=== PATIENT | female | born 1995 | race Caucasian/White ===

== ENCOUNTER → 2019-02-03 12:10 | Outpatient (CLI) | payer OTHER, SELFPAY ==
[2019-02-09 11:04] LABS: Hematocrit 39.4 % (36-46); Hemoglobin 13.2 g/dL (12.0-16.0); Mean Corpuscular HGB Conc 33.5 % (30-36); Mean Corpuscular Hemoglobin 31.9 PG (26-34); Mean Corpuscular Volume 95.3 fL (80-100); Platelet Count 251 X10^3/uL (150-400); Red Blood Cell Count 4.13 X10^6/uL (4.0-5.2); White Blood Cell Count 3.6 X10^3/uL (4.5-11.0)
[2019-02-09 11:15] LABS: Alanine Aminotransferase 21 IU/L (9-52); Albumin 4.4 g/dL (3.5-5.0); Albumin Globulin Ratio 1.8 (1.0-2.8); Alkaline Phosphatase 53 U/L (38-126); Aspartate Aminotransferase 17 IU/L (14-36); BUN Creatinine Ratio 17.1 (6-22); Bilirubin Total 0.3 mg/dL (0.2-1.3); Blood Urea Nitrogen 12 mg/dL (7-17); Carbon Dioxide 28 mmol/L (22-32); Chloride 104 mmol/L (98-107); Cholesterol 163 mg/dL (140-199); Estimated Glomerular Filt Rate > 60.0 mL/min (>60); Globulin 2.4 g/dL (1.7-4.1); Glucose 90 mg/dL (70-100); HDL Cholesterol 55 mg/dL (40-60); HEMOLYSIS < 15 (0-50); LDL Cholesterol Calculated 97 mg/dL (<100); Sodium 140 mmol/L (137-145); Total Protein 6.8 g/dL (6.3-8.2); Triglycerides 53 mg/dL (35-150)
== END ==
PROVIDERS: Nurse Practitioner Family; Visit Provider Physician Assistant
DX: R10.30 Lower abdominal pain, unspecified (principal)
CPT/HCPCS: 87210

== ENCOUNTER → 2019-02-03 12:49 | Outpatient (CLI) | payer OTHER, SELFPAY ==
--- NOTE | 2019-02-03 12:51 | DI.US.S_ITS ---
PROCEDURE: US PELVIC COMPLETE INDICATIONS: PAIN; HISTORY PID TECHNIQUE: Real-time scanning was performed of the pelvic organs, with image documentation. Additional endovaginal scanning was necessary due to incomplete visualization of the adnexal and endometrial structures by transabdominal scanning. COMPARISON: [facility], , PELVIC COMPLETE, 07/07/2012, 21:44. FINDINGS: Transabdominal scanning: Limited scanning through the kidneys shows no hydronephrosis. No pathologic free abdominal or pelvic fluid. Endovaginal scanning: Uterus: Uterus is normal in size at 8 x 3.7 x 4.7 cm. The endometrium measures 10.4 mm in combined thickness. No discrete uterine fibroid is seen. No gross endometrial mass or fluid. Ovaries: Right ovary measures 3.5 x 1.9 x 1.5 cm in size. Left ovary measures 3 x 1.7 x 1.5 cm in size. No gross solid renal lesion. Normal blood flow is seen in bilateral ovaries on color Doppler images. IMPRESSION: Unremarkable ultrasound examination of pelvis. No finding to explain patient's symptoms. Dictated by: Roscoe Jacob M.D. on 02/03/2019 at 13:55 Approved by: Roscoe Jacob M.D. on 02/03/2019 at 14:01
== END ==
PROVIDERS: Visit Provider Physician Assistant
DX: R10.2 Pelvic and perineal pain (principal); R10.30 Lower abdominal pain, unspecified
CPT/HCPCS: 36415; 76856; 80053; 80061; 85027; 87210

== ENCOUNTER → 2019-02-28 10:31 | Outpatient (CLI) | payer OTHER, SELFPAY ==
[2019-02-28 11:49] LABS: Cancer Antigen 125 7 U/mL (0-35)
== END ==
PROVIDERS: PCP Nurse Practitioner Family
DX: N80.9 Endometriosis, unspecified (principal)
CPT/HCPCS: 36415; 86304

== ENCOUNTER 2019-03-14 13:14 | Day surgery (SDC) | payer OTHER, SELFPAY ==
[2019-03-04 13:28] VITALS: BMI 27.7
[2019-03-14] VITALS (15 sets, daily range): BP systolic 93–128; BP diastolic 61–79; PULSE 58–80; RESP 11–19; TEMP 36.2–36.8; O2SAT 94–100; BMI 26.2
[2019-03-14] MEDS: LACTATED RINGERS 1,000 ML 42 ML IV ×2 (13:56→15:32)
[2019-03-14] MEDS: MIDAZOLAM 2 MG/2 ML VIAL IV (14:07)
--- NOTE | 2019-03-14 14:11 | PM.PREOP ---
Pre-operative Note Interval Note History & Physical reviewed/Exam performed by Physician: Yes Changes to H&P: No ASA Class (for procedural sedation): II
[2019-03-14] MEDS: CEFOTETAN 2 GM/50 ML PIGGYBACK IV (14:35)
--- NOTE | 2019-03-14 14:57 | SUR.OPER ---
Lithotomy on padded OR bed, head on pillow, arms secured on padded arm boards at <90 degrees abduction. Legs secured in padded yellow fins stirrups.
--- NOTE | 2019-03-14 15:09 | PM.GYNOP.1 ---
Operative Date/Time/Diagnoses Date of procedure: 03/14/19 Time of procedure: 15:09 Pre-op diagnosis: Pelvic pain rule out endometriosis Post-op diagnosis: other (No evidence of endometriosis adhesions or infectious Disease) Procedure: Procedures Operation Date: 03/14/19 14:30 <No data on this case meets the specified criteria> Indications: Pelvic pain Secondary dysmenorrhea Surgeon: Riky Gonzalez Anesthesia Type: General Operative Notes Findings: Normal uterus tubes and ovaries. Normal appendix. Normal gallbladder normal liver. All peritoneal surfaces free of evidence of endometriosis, adhesive disease or infectious Disease Closure Type: primary Specimen(s): none Estimated blood loss (mL): 25 Blood products transfused: none Procedure in detail: The patient was placed supine upon the operating table and anesthetized. She was then placed in the dorsal lithotomy position and examined under anesthesia. Careful examination of the cul-de-sac and uterosacral ligament showed no nodularity. The uterus was highly mobile. There are no adnexal masses. The patient was then draped and prepared in the usual fashion. A a speculum was set in place and the cervix visualized. It was grasped with a toothed tenaculum. Uterine cervix with post dilated to Hegar 7. This whom insufficient cannula was placed and the bulb expanded without difficulty. A speculum and tenaculum was then removed. Gloves were changed and attention turned to the abdomen. Approximately 10 cc of 0.5% Marcaine in 1 to [id number] epinephrine were injected into the umbilicus. Sharp knife incision was made. The Veress needle was placed approximately 3.4 L of carbon dioxide gas were insufflated to a final resting pressure of 15 cm of water. The Veress needle was withdrawn and the 5 mm trocar site in place. Laparoscopic placed there through the pelvic contents visualized. Patient appeared to have a normal uterus tubes and ovaries. In the left mid quadrant area was injected with 0.5% Marcaine 1 to [id number] epinephrine. Under direct laparoscopic vision a 5 mm port was placed. A grasping forceps was placed there through. The tubes were elevated and inspected and found to be normal. There was a corpus luteum cyst on the left-hand side. The ovarian fossa on both sides were entirely normal. Cul-de-sac uterus sacral ligaments and posterior peritoneal surfaces were all free from evidence of endometriosis or adhesive disease. Anterior bladder flap anterior peritoneum lateral sidewalls were all free of endometriosis or adhesive disease. The appendix appeared to be normal. Bowel appeared to be normal with no pill rolling of the fat. Omentum was normal. The liver was normal. Gallbladder was normal. This having been ascertained all carbon dioxide gas was allowed the exit the abdomen and the trocars were removed. Each incision was closed with a horizontal mattress three 0 Vicryl suture. Each incision was further approximated with Steri-Strips. Assuming insufficient cannula was removed. Patient was taken to the recovery room in satisfactory condition Complications: none Post-operative Condition: stable Disposition: PACU Plan for aftercare: Home
--- NOTE | 2019-03-14 15:15 | P.OP_ITS ---
Operative Date/Time/Diagnoses Date of procedure: 03/14/19 Time of procedure: 15:09 Pre-op diagnosis: Pelvic pain rule out endometriosis Post-op diagnosis: other (No evidence of endometriosis adhesions or infectious Disease) Procedure: Procedures Operation Date: 03/14/19 14:30 <No data on this case meets the specified criteria> Indications: Pelvic pain Secondary dysmenorrhea Surgeon: Riky Gonzalez Anesthesia Type: General Operative Notes Findings: Normal uterus tubes and ovaries. Normal appendix. Normal gallbladder normal liver. All peritoneal surfaces free of evidence of endometriosis, adhesive disease or infectious Disease Closure Type: primary Specimen(s): none Estimated blood loss (mL): 25 Blood products transfused: none Procedure in detail: The patient was placed supine upon the operating table and anesthetized. She was then placed in the dorsal lithotomy position and examined under anesthesia. Careful examination of the cul-de-sac and uterosacral ligament showed no nodularity. The uterus was highly mobile. There are no adnexal masses. The patient was then draped and prepared in the usual fashion. A a speculum was set in place and the cervix visualized. It was grasped with a toothed tenaculum. Uterine cervix with post dilated to Hegar 7. This whom insufficient cannula was placed and the bulb expanded without difficulty. A speculum and tenaculum was then removed. Gloves were changed and attention turned to the abdomen. Approximately 10 cc of 0.5% Marcaine in 1 to [id number] epinephrine were injected into the umbilicus. Sharp knife incision was made. The Veress needle was placed approximately 3.4 L of carbon dioxide gas were insufflated to a final resting pressure of 15 cm of water. The Veress needle was withdrawn and the 5 mm trocar site in place. Laparoscopic placed there through the pelvic contents visualized. Patient appeared to have a normal uterus tubes and ovaries. In the left mid quadrant area was injected with 0.5% Marcaine 1 to [id number] epinephrine. Under direct laparoscopic vision a 5 mm port was placed. A grasping forceps was placed there through. The tubes were elevated and inspected and found to be normal. There was a corpus luteum cyst on the left-hand side. The ovarian fossa on both sides were entirely normal. Cul-de-sac uterus sacral ligaments and posterior peritoneal surfaces were all free from evidence of endometriosis or adhesive disease. Anterior bladder flap anterior peritoneum lateral sidewalls were all free of endometriosis or adhesive disease. The appendix appeared to be normal. Bowel appeared to be normal with no pill rolling of the fat. Omentum was normal. The liver was normal. G allbladder was normal. This having been ascertained all carbon dioxide gas was allowed the exit the abdomen and the trocars were removed. Each incision was closed with a horizontal mattress three 0 Vicryl suture. Each incision was further approximated with Steri-Strips. Assuming insufficient cannula was removed. Patient was taken to the recovery room in satisfactory condition Complications: none Post-operative Condition: stable Disposition: PACU Plan for aftercare: Home
[2019-03-14] MEDS: BUPIVACAINE 0.5% W/ EPI (PF) VIAL 30 ML INJ (15:17)
[2019-03-14] MEDS: fentaNYL 100 MCG/2 ML INJ 50 MCG IV ×2 (15:17→15:26)
--- NOTE | 2019-03-14 15:18 | PM.DS.1 ---
History of Present Illness Date Patient Seen: 03/14/19 Time Patient Seen: 15:18 Chief complaint: Pelvic pain Narrative: Patient is a 24-year-old with a history of secondary dysmenorrhea and pelvic pain. Patient is concerned she has endometriosis and laparoscopy with scheduled to make that diagnosis Discharge Providers Discharge Date: 03/14/19 Primary care physician: FIONA Dodge Discharge provider: Riky Gonzalez MD Summary Discharge Diagnosis: Pelvic pain Hospital Course: Patient was admitted for diagnostic laparoscopy to rule in or rule out endometriosis. No endometriosis found at time of surgery nor was any adhesive disease or evidence of infection. Patient appeared to have a normal pelvis normal abdomen. Patient appeared to have normal size uterus tubes and ovaries Status at Discharge Cognitive/behavioral status at discharge: oriented Functional status at discharge: independent ambulation Overall status at discharge: patient is back to baseline Time Spent with Patient Less than 30 minutes Exam Vital Signs (past 8 hours): - 03/14/19 13:38 03/14/19 15:14 Temperature 97.5 F L 97.6 F Pulse Rate 71 61 Respiratory Rate 16 16 Blood Pressure 98/64 119/62 Pulse Oximetry 98 100 Oxygen Delivery Method Room Air Narrative Exam Narrative: The incisions without evidence of hematoma or ecchymosis Objective ECG Impression: Status post diagnostic laparoscopy doing well Discharge Plan Discharge Plan Patient Disposition: Home Discharge comment: Rest for 24 hours Discharge Med Rec/Prescriptions Prescriptions: New oxycodone-acetaminophen 5-325 mg Tablet 1 tab PO Q4HR PRN (Reason: Moderate Pain) Qty: 20 RF: 0 Continued acyclovir 400 mg tablet 400 mg PO BID Qty: 60 RF: 0 Follow up/Referrals: Daniele Loaiza ARNP [Primary Care Provider] - Riky Gonzalez MD [Physician] - 03/28/19 (Office Dr. Gonzalez two weeks) Discharge Orders: Discharge (Now); Ordered 03/14/19 Ordered By: Riky Gonzalez Provider Discharge Instructions Diet: Diet as Tolerated Activity: Up ad sivakumar Skin/Wound/Dressing Care Skin care: Keep incisions clean and dry Report to your healthcare provider any signs of infection, such as:: chills, fever, increased pain, unusual drainage and unusual redness Dressing: Steri-Strips Visit Report/Discharge Packet Instructions: DI for Laparoscopy Stand Alone Forms: Surgery Discharge Discharge Data Primary Care Provider: Daniele Loaiza Attending Provider: Riky Gonzalez
[2019-03-14] MEDS: HYDROMORPHONE 2 MG INJ 0.5 MG IV ×4 (15:22→15:41)
[2019-03-14] MEDS: LORazepam 2 MG/ML INJ 0.5 MG IV (15:47)
[2019-03-14] MEDS: OXYCODONE/ACETAMINOPHEN 5/325 TABLET 1 TAB PO (16:03)
== END 2019-03-14 16:48 | disposition home or self-care (01) ==
PROVIDERS: PCP Nurse Practitioner Family
PROC: (CPT 49320; principal; 2019-03-14 14:30)
DX: R10.2 Pelvic and perineal pain (principal); N94.10 Unspecified dyspareunia; N94.6 Dysmenorrhea, unspecified; F17.210 Nicotine dependence, cigarettes, uncomplicated; F41.9 Anxiety disorder, unspecified; J45.909 Unspecified asthma, uncomplicated; K21.9 Gastro-esophageal reflux disease without esophagitis; N83.12 Corpus luteum cyst of left ovary
CPT/HCPCS: 49320; J0330; J1100; J1170; J2060; J2250; J2405; J2704; J3010

== ENCOUNTER → 2019-09-21 10:42 | Outpatient (CLI) | payer OTHER, SELFPAY | PROVIDERS: PCP Nurse Practitioner Family; Visit Provider Physician Assistant | DX: R30.0 Dysuria (principal) | CPT/HCPCS: 87086 ==

== ENCOUNTER → 2019-09-29 09:49 | Outpatient (CLI) | payer OTHER, SELFPAY | PROVIDERS: PCP Nurse Practitioner Family; Visit Provider Nurse Practitioner Family | DX: N89.8 Other specified noninflammatory disorders of vagina (principal) | CPT/HCPCS: 87210 ==

== ENCOUNTER → 2021-09-01 11:52 | Outpatient (CLI) | payer OTHER, MEDICAID, SELFPAY ==
[2021-09-01 12:37] LABS: COVID19 -Nasal RAPID Negative (Negative)
== END ==
PROVIDERS: PCP Nurse Practitioner Family; Referring Provider Physician Assistant; Visit Provider Physician Assistant
DX: Z20.822 Contact with and (suspected) exposure to COVID-19 (principal); R05.9 Cough, unspecified
CPT/HCPCS: 87635

== ENCOUNTER → 2021-09-03 08:42 | Outpatient (CLI) | payer OTHER, MEDICAID, SELFPAY ==
[2021-09-03 09:15] LABS: COVID19 -Nasal RAPID Negative (Negative)
== END ==
PROVIDERS: PCP Nurse Practitioner Family; Visit Provider Physician Assistant
DX: Z20.822 Contact with and (suspected) exposure to COVID-19 (principal)
CPT/HCPCS: 87635

== ENCOUNTER 2021-10-24 15:22 | Emergency (ER) | payer OTHER, MEDICAID, SELFPAY ==
[2021-10-24 15:34] VITALS: BP 110/63; PULSE 91; RESP 18; TEMP 37.1; O2SAT 96; BMI 31.6
[2021-10-24 15:48] LABS: COVID19 -Nasal RAPID POSITIVE (Negative)
[2021-10-24] MEDS: predniSONE 20 MG TABLET 60 MG PO (16:06)
[2021-10-24] MEDS: BENZONATATE 100 MG CAPSULE PO (16:06)
--- NOTE | 2021-10-24 16:20 | ED.GENADULT ---
HPI - General Adult General Chief complaint: Upper Respiratory Symptoms Stated complaint: difficulty breathing, covid + Time Seen by Provider: 10/24/21 15:45 Source: patient Mode of arrival: Ambulatory History of Present Illness HPI narrative: 26-year-old woman with history of moderate persistent asthma using Flovent b.i.d. as needed albuterol both MDI and nebulized has had a ?upper respiratory infection? for the last 2 months. She was on a prednisone taper approximately 1 month ago. She has had multiple COVID tests that have all been negative and she is double COVID vaccinated but not posted at this point. Over 1 of her family members tested positive for COVID then a 2nd member in today she tested positive with a rapid test at home and comes in for confirmation. She states that she had to dig her car out of the snow and felt like she was going to pass out without activity prior to arrival in the emergency department. She appears to not feel well is slightly wheezing but able to speak in full sentences with oxygen saturations at 96% on room air. She describes fevers over the last couple days, mild nausea no vomiting, no abdominal pain. Slight headaches no palpitations and a sense of tightness through her chest consistent with her asthma. No lower extremity edema. Related Data Home Medications Medication Instructions Recorded Confirmed albuterol sulfate 1.25 mg/3 mL 1.25 mg INHALATION QID PRN 09/20/21 09/20/21 solution for nebulization fluticasone propionate 110 2 puff INHALATION BID 09/20/21 09/20/21 mcg/actuation HFA aerosol inhaler (Flovent HFA) Previous Rx's Medication Instructions Recorded acyclovir 400 mg tablet 400 mg PO BID #60 tab 02/28/19 cyclobenzaprine 10 mg tablet 10 mg PO BID #30 tab 09/29/19 naproxen 500 mg tablet 500 mg PO BID #30 tab 09/29/19 benzonatate 100 mg capsule 100 mg PO BID PRN #20 cap 09/20/21 benzonatate 100 mg capsule 100 mg PO BID-TID PRN #20 cap 10/24/21 prednisone 20 mg tablet 20 mg PO DAILY #11 tab 10/24/21 Allergies Allergy/AdvReac Type Severity Reaction Status Date / Time Penicillins Allergy Unknown Verified 09/01/21 12:11 Review of Systems Review of Systems Narrative: Remainder of complete review of systems is otherwise unremarkable except for that included in the HPI. Patient History Medical History Abnormal Pap smear of cervix (~03/2018) Anxiety (~03/2016) Asthma (~1999) Asthma exacerbation Dyspareunia Fractures (~10/2010) GERD (gastroesophageal reflux disease) Human papilloma virus (~03/2018) Irregular menstrual cycle Surgical History Anesthesia History of ankle surgery (~02/08/19) History of hysteroscopy (03/14/19) S/P laparoscopy (03/14/19) Family History Father Hyperlipidemia Mother Breast cancer Bone tumor Sister Vertigo Family history of thyroid problem Grandfather Dementia Lives in care home Grandmother Lives in care home Breast cancer Grandfather Mental health problem Paranoid schizophrenia History of suicide attempt Social History household members: friend(s) Smoking Status: Current every day smoker quit status: considering quitting second hand exposure: Yes (work at [employer]) alcohol intake: never substance use type: marijuana Smoking Status: Current every day smoker alcohol intake frequency: holidays/special occasions only Substance Use Type: marijuana Exam Narrative Exam Narrative: General: Appears to me mildly ill but not acutely toxic and remains Able to give a complete and coherent history. Well-nourished well-developed HEENT: Moist mucous membranes, normal sclera with reactive pupils, Neck: No JVD, supple, no cervical adenopathy Respiratory: Lungs moderate wheeze in all lung shetty without rhonchi. Full and symmetrical air movement Cardiac: Mild tachycardia but otherwise Regular rate and rhythm no murmurs no bruits Abdomen: Soft, nontender, good bowel tones, no flank pain Skin: Warm and dry, no rashes Neurologic: Grossly neurologically intact with no obvious asymmetries or abnormalities Extremities: No trauma, well perfused Psych: Cooperative, appropriate insight and affect Initial Vital Signs Initial Vital Signs: Vital Signs Temperature 98.7 F 10/24/21 15:34 Pulse Rate 91 H 10/24/21 15:34 Respiratory Rate 18 10/24/21 15:34 Blood Pressure 110/63 10/24/21 15:34 Pulse Oximetry 96 10/24/21 15:34 Course Orders Ordered: ED Orders 10/24/21 15:29 COVID19 -Nasal swab/Pre-Proc Stat Discontinued Medications Benzonatate (Benzonatate 100 Mg Capsule) 100 mg PO NOW ONE Stop: 10/24/21 15:58 Last Admin: 10/24/21 16:06 Dose: 100 mg Documented by: DEE Prednisone (Prednisone 20 Mg Tablet) 60 mg PO NOW ONE Stop: 10/24/21 15:58 Last Admin: 10/24/21 16:06 Dose: 60 mg Documented by: DEE Vital Signs Vital signs: Vital Signs - 8 hr 10/24/21 15:34 Temperature 98.7 F Pulse Rate 91 H Respiratory Rate 18 Blood Pressure 110/63 Pulse Oximetry 96 Medical Decision Making Lab Data Labs: Lab Results 10/24/21 Range/Units 15:29 SARS-CoV-2 (PCR) Positive H (Negative) MDM Narrative Medical decision making narrative: 26-year-old woman with moderate persistent asthma and now day to COVID symptoms. Oxygen saturations are at 96% on room air. With the amount of wheezing that she is having am going to choose to place her in a prednisone taper she is given 60 mg of oral prednisone as well as the Tessalon Perle in the emergency department. 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 She is not in significant respiratory distress and is safe for home discharge at this time. Discharge Plan Departure Patient Disposition: Home Clinical Impression: COVID-19, Asthma exacerbation Instructions: DI for Asthma -- Adult, DI for COVID-19 (Suspected or Confirmed ) Activity Restrictions/Additional Instructions: Thank you for coming in today Your at home COVID test was correct and you do have COVID-19 I believe you are also having an acute exacerbation of your asthma because of the COVID-19 Please use your nebulized albuterol every 4-6 hours as needed for wheezing or feeling short of breath. I am going to ask you to start prednisone. Your given 60 mg in the emergency department and of prescription with 40 mg for 3 days, 20 mg for 3 days and 10 mg for 3 days is sent to [facility] I have also included a prescription for Tessalon Perles to help control the cough. Make sure that you are using your inhaler or nebulizer 1st and if you are still coughing you can add on a cough medicine If you find that you are getting worse and having more difficulty breathing, please feel free to return to the ER. Using 400 mg of ibuprofen (2 [id number] pills) and 1 Tylenol every 6 hours can be very helpful in controlling pain. I hope you feel better soon Prescriptions: New prednisone 20 mg tablet 20 mg PO DAILY Qty: 11 0RF Rx Instructions: 2 daily for 3 days, 1 daily for 3 days, .5 daily for 4 days benzonatate 100 mg capsule 100 mg PO BID-TID PRN (Reason: cough) Qty: 20 0RF No Action albuterol sulfate 1.25 mg/3 mL solution for nebulization 1.25 mg inhalation QID PRN0RF Flovent HFA 110 mcg/actuation HFA aerosol inhaler 2 puff inhalation BID 0RF benzonatate 100 mg capsule 100 mg PO BID PRN (Reason: cough) Qty: 20 0RF acyclovir 400 mg tablet 400 mg PO BID Qty: 60 0RF Rx Instructions: while awake; give 5 doses in 24 hours cyclobenzaprine 10 mg tablet 10 mg PO BID Qty: 30 0RF Rx Instructions: May make drowsy, do not drive naproxen 500 mg tablet 500 mg PO BID Qty: 30 0RF Rx Instructions: Stop other NSAIDs, take with food Referrals: Daniele Loaiza ARNP [Primary Care Provider] -
== END 2021-10-24 16:19 | disposition home or self-care (01) ==
PROVIDERS: Emergency Provider Emergency Medicine; PCP Nurse Practitioner Family
DX: U07.1 COVID-19 (principal); J45.901 Unspecified asthma with (acute) exacerbation; F17.200 Nicotine dependence, unspecified, uncomplicated
CPT/HCPCS: 87635; 99283; C9803

== ENCOUNTER 2021-11-09 03:55 | Emergency (ER) | payer OTHER, MEDICAID, SELFPAY ==
[2021-11-09 04:04] VITALS: BP 145/77; PULSE 88; RESP 20; TEMP 36.2; O2SAT 97; BMI 31.4
[2021-11-09 04:20] VITALS: BP 127/71; PULSE 76; RESP 20; O2SAT 97
--- NOTE | 2021-11-09 04:34 | DI.RAD.S_ITS ---
PROCEDURE: XR CHEST 2V INDICATIONS: chest pain, cough TECHNIQUE: 2 views of the chest were acquired. COMPARISON: None. FINDINGS: Surgical changes and devices: None. Lungs and pleura: Lungs are clear. No pleural effusions or pneumothorax. Mediastinum: Mediastinal contours are normal. Heart size is normal. Bones and chest wall: No suspicious bony abnormalities. Soft tissues appear unremarkable. IMPRESSION: No significant plain film abnormality is seen. Note: No significant discrepancy from the preliminary report. Dictated by: Vadim Dang M.D. on 11/09/2021 at 8:10 Approved by: Vadim Dang M.D. on 11/09/2021 at 8:10
[2021-11-09] MEDS: predniSONE 20 MG TABLET 40 MG PO (04:39)
--- NOTE | 2021-11-09 05:46 | ED.URI ---
HPI - URI/Sore Throat General Chief Complaint: Upper Respiratory Symptoms Stated Complaint: trouble breathing, chest pain Time Seen by Provider: 11/09/21 04:10 Source: patient Mode of arrival: Ambulatory History of Present Illness HPI Narrative: 26-year-old female smoker with history of asthma and recent diagnosis of COVID presents with a chief complaint of a sharp and stabbing anterior chest pain and significant dry and hacking cough that has been worsening over the past week or so. She denies any fever, nausea or vomiting. She has had some runny nose and a bit of sore throat. She had been seen by her primary care provider and as the steroid taper ordered for tomorrow. She had been given a steroid taper in the aftermath of her diagnosis of COVID and had been doing better until it ran out. She is also taking Tessalon Perles without much in the way of relief Related Data Home Medications Medication Instructions Recorded Confirmed albuterol sulfate 1.25 mg/3 mL 1.25 mg INHALATION QID PRN 09/20/21 09/20/21 solution for nebulization fluticasone propionate 110 2 puff INHALATION BID 09/20/21 09/20/21 mcg/actuation HFA aerosol inhaler (Flovent HFA) Previous Rx's Medication Instructions Recorded acyclovir 400 mg tablet 400 mg PO BID #60 tab 02/28/19 cyclobenzaprine 10 mg tablet 10 mg PO BID #30 tab 09/29/19 naproxen 500 mg tablet 500 mg PO BID #30 tab 09/29/19 benzonatate 100 mg capsule 100 mg PO BID PRN #20 cap 09/20/21 benzonatate 100 mg capsule 100 mg PO BID-TID PRN #20 cap 10/24/21 prednisone 20 mg tablet 20 mg PO DAILY #11 tab 10/24/21 prednisone 10 mg tablet See Rx Instructions .ROUTE 11/09/21 .COMPLEX #30 tab promethazine 6.25 mg-codeine 10 5 ml PO Q4-6H PRN #473 ml 11/09/21 mg/5 mL syrup Allergies Allergy/AdvReac Type Severity Reaction Status Date / Time Penicillins Allergy Unknown Verified 09/01/21 12:11 Review of Systems Review of Systems Narrative: GENERAL: Denies chills, fatigue, malaise, fever, sweats. HEENT: Denies sinus pain, ear pain, sore throat, difficulty swallowing, dizziness. RESPIRATORY: See HPI CARDIOVASCULAR: see HPI GASTROINTESTINAL: Denies nausea, vomiting, abdominal pain, diarrhea, constipation, melena. : Denies dysuria, frequency, incontinence, hematuria, urinary retention. MUSCULOSKELETAL: denies weakness, joint pain, or bony pain SKIN: Denies rash, skin lesions, or other NEUROLOGIC: Denies weakness, headache, numbness, change in speech, confusion, seizures, incoordination. PSYCHIATRIC: No concerning psychosocial issues. 12 point review of systems is negative except for those stated above Patient History Medical History Abnormal Pap smear of cervix (~03/2018) Anxiety (~03/2016) Asthma (~1999) Asthma exacerbation Dyspareunia Fractures (~10/2010) GERD (gastroesophageal reflux disease) Human papilloma virus (~03/2018) Irregular menstrual cycle Surgical History Anesthesia History of ankle surgery (~02/08/19) History of hysteroscopy (03/14/19) S/P laparoscopy (03/14/19) Family History Father Hyperlipidemia Mother Breast cancer Bone tumor Sister Vertigo Family history of thyroid problem Grandfather Dementia Lives in senior living Grandmother Lives in senior living Breast cancer Grandfather Mental health problem Paranoid schizophrenia History of suicide attempt Social History household members: friend(s) Smoking Status: Current every day smoker quit status: considering quitting second hand exposure: Yes (work at [employer]) alcohol intake: never substance use type: marijuana Smoking Status: Current every day smoker alcohol intake frequency: holidays/special occasions only Substance Use Type: marijuana Exam Narrative Exam Narrative: GENERAL: [26 year old patient appears stated age. Well-developed patient, in mild distress. Frequent dry and hacking cough, worse with deep breath HEAD: Atraumatic. Normocephalic. EYES: Pupils equal round and reactive. Extraocular motions intact. No scleral icterus. No injection or drainage. ENT: Nose without bleeding, purulent drainage. Throat without erythema, tonsillar hypertrophy or exudate. Airway patent. NECK: Trachea midline. Non tender CARDIOVASCULAR: Regular rate and rhythm without murmurs, gallops, or rubs. Anterior chest wall tender to palpation RESPIRATORY: Clear to auscultation. Breath sounds equal bilaterally. No wheezes, rales, or rhonchi. No significant work of breathing, no wheezes, rales or rhonchi GASTROINTESTINAL: Abdomen soft, non-tender, nondistended. EXTREMITIES: No edema or joint tenderness. BACK: Nontender without deformity or crepitance. No flank tenderness. NEURO: AOx3. SKIN: No rash or erythema of visible areas Initial Vital Signs Initial Vital Signs: Vital Signs Temperature 97.2 F L 11/09/21 04:04 Pulse Rate 88 11/09/21 04:04 Respiratory Rate 20 11/09/21 04:04 Blood Pressure 145/77 H 11/09/21 04:04 Pulse Oximetry 97 11/09/21 04:04 Course Orders Ordered: ED Orders 11/09/21 04:34 Chest [XR chest 2V] Stat EKG-12 Lead Stat 11/09/21 05:20 BMP [Basic Metabolic Panel] Stat CBC Auto Diff [Complete Blood Count AUTO DIFF] Stat CRP [C-Reactive Protein Quant] Stat ESR [Erythrocyte Sedimentation Rate] Stat Troponin & CK Cardiac Panel Stat Discontinued Medications Acetaminophen/Codeine Phosphate (Acetaminophen/Codeine Soln 5 Ml Solution) 10 ml PO NOW ONE Stop: 11/09/21 06:41 Prednisone (Prednisone 20 Mg Tablet) 40 mg PO NOW ONE Stop: 11/09/21 04:35 Last Admin: 11/09/21 04:39 Dose: 40 mg Documented by: JANAE Vital Signs Vital signs: Vital Signs - 8 hr 11/09/21 04:04 11/09/21 04:20 11/09/21 06:36 Temperature 97.2 F L Pulse Rate 88 76 72 Respiratory Rate 20 20 20 Blood Pressure 145/77 H 127/71 103/64 Pulse Oximetry 97 97 97 MDM - URI/Sore Throat Lab Data Result diagrams: 11/09/21 05:20 11/09/21 05:20 Labs: Lab Results 11/09/21 11/09/21 Range/Units 05:20 05:20 WBC 5.8 (4.5-11.0) X10^3/uL RBC 4.06 (4.0-5.2) X10^6/uL Hgb 13.0 (12.0-16.0) g/dL Hct 37.6 (36-46) % MCV 92.7 (80-100) fL MCH 32.0 (26-34) PG MCHC 34.5 (30-36) % RDW 12.5 (11.6-14.8) % Plt Count 221 (150-400) X10^3/uL Neut % (Auto) 46.7 L (50-75) % Lymph % (Auto) 43.4 H (25-40) % [place] % (Auto) 7.6 (3-14) % Eos % (Auto) 1.8 L (2-4) % Baso % (Auto) 0.5 (0-2) % Neut # (Auto) 2700 (1345-1628) /uL Lymph # (Auto) 2500 (3379-8180) /uL [place] # (Auto) 400 (0-900) /uL Eos # (Auto) 100 (0-450) /uL Baso # (Auto) 0 (0-100) /uL ESR 9 (0-20) MM/HR Sodium 138 (137-145) mmol/L Potassium 3.6 (3.4-5.1) mmol/L Chloride 108 H (98-107) mmol/L Carbon Dioxide 25 (22-32) mmol/L BUN 16 (7-17) mg/dL Creatinine 0.79 (0.52-1.04) mg/dL Estimated GFR > 60.0 (>60) mL/min BUN/Creatinine Ratio 20.3 (6-22) Glucose 113 H (70-100) mg/dL Calcium 8.8 (8.4-10.2) mg/dL Total Creatine Kinase 35 (30-135) U/L CK-MB (CK-2) TNP CK-MB (CK-2) Rel Index TNP Troponin I < 0.012 (0.01-0.034) ng/mL C-Reactive Protein < 0.5 (<1.0) mg/dL Discharge Plan Departure Patient Disposition: Home Clinical Impression: Asthma exacerbation Instructions: Asthma -- Adult Activity Restrictions/Additional Instructions: *You have been diagnosed with [bronchospastic cough and asthma exacerbation in the aftermath of COVID *What to do: *Please continue to take your regular medications as directed. [x ] New medication prescriptions sent to your pharmacy: [[facility]] [ ] New medication written as a paper prescription [ ] No new medications given *Please follow up with your primary care provider in 2-3 days, call for an appointment. Let them know you were seen in the Emergency Department and that we ask that you be seen in follow up. We will electronically transmit a record of today's note if your PCP is in our system *If you do not have a primary care provider please contact the [facility] Resource line at [phone]. They will ask some questions about your medical history and help get you set up with a doctor in the community. *Return to Emergency Department if you should have any new, worsening or concerning symptoms, such as [fever greater than 101 F, shaking chills, worsening pain, persistent vomiting or other bothersome symptoms] Prescriptions: New prednisone 10 mg tablet See Rx Instructions .ROUTE .COMPLEX Qty: 30 0RF Rx Instructions: Day 1,2,3: 40mg PO Daily Day 4,5,6: 30mg PO Daily Day 7,8,9: 20mg PO Daily Day 10,11,12: 10mg PO Daily #30 promethazine-codeine 6.25-10 mg/5 mL syrup 5 ml PO Q4-6H PRN (Reason: cough) Qty: 473 0RF No Action albuterol sulfate 1.25 mg/3 mL solution for nebulization 1.25 mg inhalation QID PRN0RF Flovent HFA 110 mcg/actuation HFA aerosol inhaler 2 puff inhalation BID 0RF benzonatate 100 mg capsule 100 mg PO BID PRN (Reason: cough) Qty: 20 0RF acyclovir 400 mg tablet 400 mg PO BID Qty: 60 0RF Rx Instructions: while awake; give 5 doses in 24 hours cyclobenzaprine 10 mg tablet 10 mg PO BID Qty: 30 0RF Rx Instructions: May make drowsy, do not drive naproxen 500 mg tablet 500 mg PO BID Qty: 30 0RF Rx Instructions: Stop other NSAIDs, take with food prednisone 20 mg tablet 20 mg PO DAILY Qty: 11 0RF Rx Instructions: 2 daily for 3 days, 1 daily for 3 days, .5 daily for 4 days benzonatate 100 mg capsule 100 mg PO BID-TID PRN (Reason: cough) Qty: 20 0RF Referrals: Daniele Loaiza ARNP [Primary Care Provider] -
[2021-11-09 05:57] LABS: Add Manual Diff / Slide Review NO; Basophils Absolute Auto 0 /uL (0-100); Basophils Percent Auto 0.5 % (0-2); Eosinophils Absolute Auto 100 /uL (0-450); Eosinophils Percent Auto 1.8 % (2-4); Hematocrit 37.6 % (36-46); Lymphocytes Absolute Auto 2500 /uL (1100-4500); Lymphocytes Percent Auto 43.4 % (25-40); Mean Corpuscular HGB Conc 34.5 % (30-36); Mean Corpuscular Volume 92.7 fL (80-100); Monocytes Absolute Auto 400 /uL (0-900); Monocytes Percent Auto 7.6 % (3-14); Neutrophils Absolute Auto 2700 /uL (1500-7000); Neutrophils Percent Auto 46.7 % (50-75); Platelet Count 221 X10^3/uL (150-400); Red Blood Cell Count 4.06 X10^6/uL (4.0-5.2); Red Cell Distribution Width 12.5 % (11.6-14.8); White Blood Cell Count 5.8 X10^3/uL (4.5-11.0)
[2021-11-09 06:09] LABS: BUN Creatinine Ratio 20.3 (6-22); Blood Urea Nitrogen 16 mg/dL (7-17); C-Reactive Protein Quant < 0.5 mg/dL (<1.0); Calcium 8.8 mg/dL (8.4-10.2); Carbon Dioxide 25 mmol/L (22-32); Chloride 108 mmol/L (98-107); Creatine Kinase 35 U/L (30-135); Estimated Glomerular Filt Rate > 60.0 mL/min (>60); Glucose 113 mg/dL (70-100); HEMOLYSIS 26 (0-50); Potassium 3.6 mmol/L (3.4-5.1); Sodium 138 mmol/L (137-145)
[2021-11-09 06:19] LABS: Troponin I < 0.012 ng/mL (0.01-0.034)
[2021-11-09 06:21] LABS: Erythrocyte Sedimentation Rate 9 MM/HR (0-20)
[2021-11-09 06:36] VITALS: BP 103/64; PULSE 72; RESP 20; O2SAT 97
--- NOTE | 2021-11-09 13:56 | PC.NURSE ---
Pt called as pharm
== END 2021-11-09 07:03 | disposition home or self-care (01) ==
PROVIDERS: Emergency Provider Emergency Medicine; PCP Nurse Practitioner Family
DX: J45.901 Unspecified asthma with (acute) exacerbation (principal); F17.200 Nicotine dependence, unspecified, uncomplicated; Z86.16 Personal history of COVID-19
CPT/HCPCS: 36415; 71046; 80048; 82550; 84484; 85025; 85651; 86140; 93005; 93010; 99284

== ENCOUNTER → 2022-12-05 14:01 | Outpatient (CLI) | payer OTHER, MEDICAID, SELFPAY ==
[2022-12-05 15:28] LABS: Influenza A - CEPHEID Flu A NEGATIVE (NEGATIVE); Influenza B - CEPHEID Flu B NEGATIVE (NEGATIVE); Respiratory Syncytial Virus Negative (Negative)
[2022-12-05 15:36] LABS: COVID-19 CEPHEID 4-PLEX PCR Negative (Negative)
== END ==
PROVIDERS: PCP Nurse Practitioner Family; Visit Provider Registered Nurse
DX: J02.9 Acute pharyngitis, unspecified (principal); R09.81 Nasal congestion; Z20.822 Contact with and (suspected) exposure to COVID-19
CPT/HCPCS: 0241U; 87070; 87147; 87880

== ENCOUNTER 2023-02-05 16:35 | Emergency (ER) | payer OTHER, MEDICAID, SELFPAY ==
[2023-02-05 16:58] VITALS: BP 109/68; PULSE 93; RESP 22; TEMP 36.7; O2SAT 100; BMI 38.4
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
[2023-02-05 17:29] VITALS: BP 111/71; PULSE 94; RESP 18; O2SAT 100
[2023-02-05] MEDS: KETOROLAC 30 MG/ML VIAL IM (17:42)
[2023-02-05] MEDS: HYDROCODONE/ACET 5/325 TABLET 1 TAB PO (17:42)
[2023-02-05 18:00] VITALS: BP 110/62; PULSE 81; RESP 17; O2SAT 100
[2023-02-05 18:12] LABS: Bacteria Urine Moderate (10-30); Culture Indicated Urine Specimen Cultured; RBC Urine 1-5/HPF (0-5/HPF); Squamous Epithelial Cell Urine 10-30 /HPF (0-5/HPF); WBC Urine 1-5/HPF (0-5/HPF)
[2023-02-05 18:20] VITALS: PULSE 80; RESP 18; O2SAT 99
--- NOTE | 2023-02-05 18:21 | PC.NURSE ---
lab at bedside. Provider at bedside.
--- NOTE | 2023-02-05 18:33 | PC.NURSE ---
Provider performed wet prep, she gave sample to tutorial laboratory supervisor @ [id number]
[2023-02-05 18:40] VITALS: BP 102/65; PULSE 82; RESP 18; O2SAT 99
[2023-02-05 18:48] LABS: Add Manual Diff / Slide Review NO; Basophils Absolute Auto 0 /uL (0-100); Basophils Percent Auto 0.4 % (0-2); Eosinophils Absolute Auto 0 /uL (0-450); Eosinophils Percent Auto 0.5 % (2-4); Hematocrit 38.4 % (36-46); Hemoglobin 13.1 g/dL (12.0-16.0); Lymphocytes Absolute Auto 1800 /uL (1100-4500); Lymphocytes Percent Auto 26.7 % (25-40); Mean Corpuscular Hemoglobin 31.5 PG (26-34); Mean Corpuscular Volume 92.7 fL (80-100); Monocytes Absolute Auto 300 /uL (0-900); Neutrophils Absolute Auto 4600 /uL (1500-7000); Neutrophils Percent Auto 67.4 % (50-75); Platelet Count 295 X10^3/uL (150-400); Red Blood Cell Count 4.15 X10^6/uL (4.0-5.2); White Blood Cell Count 6.8 X10^3/uL (4.5-11.0)
[2023-02-05 18:54] LABS: Alanine Aminotransferase 26 IU/L (<35); Albumin Globulin Ratio 1.3 (1.0-2.8); Alkaline Phosphatase 61 U/L (38-126); Aspartate Aminotransferase 24 IU/L (14-36); BUN Creatinine Ratio 10.7 (6-22); Bilirubin Total 0.6 mg/dL (0.2-1.3); Blood Urea Nitrogen 8 mg/dL (7-17); Calcium 8.7 mg/dL (8.4-10.2); Carbon Dioxide 29 mmol/L (22-32); Chloride 102 mmol/L (98-107); Creatine Kinase 78 U/L (30-135); Estimated Glomerular Filt Rate > 60 mL/min (>60); Glucose 95 mg/dL (70-100); HEMOLYSIS < 15 (0-50); Lipase 36 U/L (23-300); Potassium 4.2 mmol/L (3.4-5.1); Sodium 137 mmol/L (137-145)
[2023-02-05 18:55] LABS: Magnesium 1.9 mg/dL (1.6-2.3)
[2023-02-05 19:06] LABS: Troponin I < 0.012 ng/mL (0.01-0.034)
[2023-02-05] MEDS: metroNIDAZOLE 500 MG TABLET PO (19:10)
[2023-02-05] MEDS: methocarbamoL 500 MG TABLET PO (19:11)
== END 2023-02-05 19:20 | disposition home or self-care (01) ==
PROVIDERS: Emergency Provider Nurse Practitioner Critical Care Medicine; PCP Family Medicine
DX: S29.012A Strain of muscle and tendon of back wall of thorax, initial encounter (principal); N76.0 Acute vaginitis; R07.9 Chest pain, unspecified; V89.2XXA Person injured in unspecified motor-vehicle accident, traffic, initial encounter
CPT/HCPCS: 36415; 71046; 80053; 81003; 81015; 81025; 82550; 83690; 83735; 84484; 85025; 87086; 87210; 93005; 93010; 96372; 99283; J1885

== ENCOUNTER 2023-11-15 22:30 | Emergency (ER) | payer SELFPAY ==
[2023-11-15] VITALS (12 sets, daily range): BP systolic 82–122; BP diastolic 51–77; PULSE 55–69; RESP 19–25; TEMP 36.2; O2SAT 97–99; BMI 39.6
[2023-11-15] MEDS: ONDANSETRON 4 MG/2 ML INJ IV (23:03)
--- NOTE | 2023-11-15 23:06 | ED_ITS ---
HPI - Abdominal Pain General Chief Complaint: Abdominal Pain Stated Complaint: back pain Time Seen by Provider: 11/15/23 23:05 Source: patient Mode of arrival: Wheelchair Limitations: no limitations History of Present Illness HPI narrative: 28-year-old female with history of asthma who presents with complaint of right lower flank and abdominal pain for the past 2-3 days. Patient states she thought it was just her menses which she started on Thursday. But pain has significantly increased in her menses has started to stop she has only been spotting today. She states that is atypical usually gets 4-5 days. She states pain became significantly worse in her right flank. Wraps around to the right front. Patient states no fevers but has been having nausea and vomiting on and off throughout the last 36 hours. Pain sort of waxes and wanes in intensity. She states she has had some loose yellow brown stools. She states her vaginal bleeding has tapered off to just spotting. She states she typically has urinary frequency, she has had issues with urinary retention since having an a year ago. Patient states no dysuria today but did have some a week ago. She states no fevers. Did feel dizzy. Had gone to [place] for the weekend states that she does vape tobacco, she did have few alcoholic drinks but states she did not drink heavily. She states she does use marijuana. States she has had a prior orthopedic surgery but denies any other intra-abdominal surgeries other than above. Allergic to penicillin does not know what symptoms she gets. Patient had flown back from [place], landed and was on her way home when pain became significantly worse. Related Data Home Medications Medication Instructions Recorded Confirmed albuterol sulfate 1.25 mg/3 mL 1.25 mg inhalation QID PRN 09/20/21 09/20/21 solution for nebulization aripiprazole 2 mg tablet 2 mg PO DAILY 12/05/22 bupropion HCl 150 mg tablet,12 hr 150 mg PO BID 12/05/22 sustained-release (Wellbutrin SR) fluticasone propionate 100 1 inh inhalation Q12H 12/05/22 mcg/actuation blister powder for inhalation (Flovent Diskus) Previous Rx's Medication Instructions Recorded azithromycin 250 mg tablet See Rx Instructions PO .COMPLEX #6 12/05/22 tabs lidocaine 5 % topical patch 1 patch topical DAILY PRN muscle 02/05/23 (Lidoderm) pain #15 ea methocarbamol 500 mg tablet 500 mg PO TID PRN muscle pain #20 02/05/23 tabs ondansetron 4 mg disintegrating 4 mg PO QID PRN nausea and 11/16/23 tablet vomiting #10 tabs oxycodone 5 mg tablet 5 mg PO Q6H PRN pain #14 tabs 11/16/23 tamsulosin 0.4 mg capsule 0.4 mg PO DAILY #7 caps 11/16/23 Allergies Allergy/AdvReac Type Severity Reaction Status Date / Time Penicillins Allergy Unknown Verified 02/05/23 16:58 Review of Systems Review of Systems ROS Unobtainable: All systems reviewed & are unremarkable except as noted in HPI and below Patient History Medical History Asthma exacerbation Fractures (~10/2010) Irregular menstrual cycle Human papilloma virus (~03/2018) Abnormal Pap smear of cervix (~03/2018) Anxiety (~03/2016) Asthma (~1999) GERD (gastroesophageal reflux disease) Dyspareunia Surgical History Anesthesia History of hysteroscopy (03/14/19) S/P laparoscopy (03/14/19) History of ankle surgery (~02/08/19) Family History Father Hyperlipidemia Mother Breast cancer Bone tumor Sister Vertigo Family history of thyroid problem Grandfather Dementia Lives in senior care Grandmother Lives in senior care Breast cancer Grandfather Mental health problem Paranoid schizophrenia History of suicide attempt Social History household members: friend(s) Smoking Status: Current every day smoker quit status: considering quitting second hand exposure: Yes (work at [employer]) alcohol intake: never substance use type: marijuana Smoking Status: Current every day smoker tobacco type: vaping alcohol intake frequency: a few times a month Substance Use Type: marijuana Exam Narrative Exam Narrative: GENERAL: Alert and oriented x three, female in moderate distress. HEENT: Head normocephalic, atraumatic, EOMI, pupils reactive, face symmetric, moist mucous membranes NECK: Supple, full range of motion CARDIOVASCULAR: Regular rate and rhythm without murmurs, rubs or gallops. RESPIRATORY: Breath sounds equal bilaterally, no wheezes rales or rhonchi. ABDOMEN: Soft, right lower quadrant tenderness Normoactive bowel sounds all 4 quadrants. No guarding or rebound, rigidity, no mass : Positive for right CVA tenderness, no left CVA tenderness EXTREMITIES: Normal range of motion, no clubbing or edema. Neurovascularly intact NEUROLOGICAL: Cranial nerves II through XII grossly intact. Moving all extremities SKIN: Warm, dry, no petechiae, no rashes or lesions. Initial Vital Signs Initial Vital Signs: Vital Signs Temperature 97.1 F L 11/15/23 22:38 Pulse Rate 65 11/15/23 22:38 Respiratory Rate 22 11/15/23 22:38 Blood Pressure 122/56 L 11/15/23 22:38 Pulse Oximetry 98 11/15/23 22:38 Oxygen Delivery Method Room Air 11/15/23 22:38 Course Orders Ordered: ED Orders 11/15/23 22:47 Complete Blood Count AUTO DIFF Stat Comprehensive Metabolic Panel Stat Lipase Stat 11/15/23 22:56 Test Urine Stat UA dip [Urinalysis Screen (Dip Only)] Stat Urine Microscopic Stat 11/15/23 23:17 CT abdomen pelvis w con Stat Discontinued Medications Sodium Chloride (Normal Saline 0.9%) 1,000 mls @ 1,000 mls/hr IV BOLUS ONE Stop: 11/16/23 00:09 Last Infusion: 11/16/23 00:16 Dose: Infused Documented By: Admin: 11/15/23 23:11 Dose: 1,000 mls/hr Documented By: KARLO Ketorolac Tromethamine (Ketorolac 30 Mg/Ml Vial) 15 mg IV NOW ONE Stop: 11/15/23 23:18 Last Admin: 11/15/23 23:21 Dose: 15 mg Documented By: KARLO Ondansetron HCl (Ondansetron 4 Mg Odt) 4 mg PO NOW PRN PRN Reason: Nausea And Vomiting Ondansetron HCl (Ondansetron 4 Mg/2 Ml Inj) 4 mg IV NOW PRN PRN Reason: Nausea And Vomiting Last Admin: 11/15/23 23:03 Dose: 4 mg Documented By: KARLO Ondansetron HCl (Ondansetron 4 Mg Odt Prepack) 1 bottle MISC DIRECTED ONE Stop: 11/16/23 00:37 Last Admin: 11/16/23 00:46 Dose: 1 bottle Documented By: KARLO Oxycodone/Acetaminophen (Oxycodone/Apap 5/325 Prepack) 1 bottle MISC DIRECTED ONE Stop: 11/16/23 00:37 Last Admin: 11/16/23 00:46 Dose: 1 bottle Documented By: KARLO Tamsulosin HCl (Tamsulosin 0.4 Mg Capsule) 0.4 mg PO NOW ONE Stop: 11/16/23 00:37 Last Admin: 11/16/23 00:45 Dose: 0.4 mg Documented By: KARLO Vital Signs Vital signs: Vital Signs - 8 hr 11/15/23 22:38 11/15/23 22:38 11/15/23 23:00 Temperature 97.1 F L Pulse Rate 65 69 68 Respiratory Rate 22 23 24 Blood Pressure 122/56 L Pulse Oximetry 98 97 97 Oxygen Delivery Method Room Air 11/15/23 23:04 11/15/23 23:04 11/15/23 23:05 Temperature Pulse Rate 62 63 Respiratory Rate 19 21 Blood Pressure 99/57 L Pulse Oximetry 98 97 Oxygen Delivery Method Room Air 11/15/23 23:05 11/15/23 23:10 11/15/23 23:10 Temperature Pulse Rate 65 Respiratory Rate 20 Blood Pressure 103/59 L 94/51 L Pulse Oximetry 98 Oxygen Delivery Method 11/15/23 23:15 11/15/23 23:15 11/15/23 23:26 Temperature Pulse Rate 66 55 L Respiratory Rate 23 25 H Blood Pressure 98/54 L Pulse Oximetry 99 99 Oxygen Delivery Method Room Air 11/15/23 23:26 11/15/23 23:30 11/15/23 23:30 Temperature Pulse Rate 66 Respiratory Rate 23 Blood Pressure 118/72 112/77 Pulse Oximetry 98 Oxygen Delivery Method Room Air 11/15/23 23:35 11/15/23 23:35 11/15/23 23:40 Temperature Pulse Rate 61 63 Respiratory Rate 24 22 Blood Pressure 106/63 Pulse Oximetry 98 98 Oxygen Delivery Method 11/15/23 23:40 11/15/23 23:42 11/15/23 23:42 Temperature Pulse Rate 62 Respiratory Rate 22 Blood Pressure 82/53 L 106/61 Pulse Oximetry 98 Oxygen Delivery Method 11/15/23 23:45 11/15/23 23:45 11/16/23 00:02 Temperature Pulse Rate 64 78 Respiratory Rate Blood Pressure 108/62 Pulse Oximetry 98 99 Oxygen Delivery Method Room Air 11/16/23 00:03 11/16/23 00:03 11/16/23 00:06 Temperature 97.5 F L Pulse Rate 69 Respiratory Rate Blood Pressure 110/67 Pulse Oximetry 99 Oxygen Delivery Method Room Air 11/16/23 00:18 11/16/23 00:18 11/16/23 00:20 Temperature Pulse Rate 77 Respiratory Rate 24 Blood Pressure 120/63 121/65 Pulse Oximetry 97 Oxygen Delivery Method 11/16/23 00:20 11/16/23 00:30 11/16/23 00:40 Temperature Pulse Rate 69 72 Respiratory Rate 23 Blood Pressure 111/57 L Pulse Oximetry 97 97 Oxygen Delivery Method Room Air Room Air 11/16/23 00:40 11/16/23 00:58 Temperature Pulse Rate 80 Respiratory Rate Blood Pressure 95/50 L 114/64 Pulse Oximetry Oxygen Delivery Method MDM - Abdominal Pain Lab Data 11/15/23 22:47 11/15/23 22:47 Labs: Lab Results 11/15/23 11/15/23 Range/Units 22:47 22:56 WBC 8.4 (4.5-11.0) X10^3/uL RBC 4.17 (4.0-5.2) X10^6/uL Hgb 13.0 (12.0-16.0) g/dL Hct 37.4 (36-46) % MCV 89.7 (80-100) fL MCH 31.3 (26-34) PG MCHC 34.9 (30-36) % RDW 13.0 (11.6-14.8) % Plt Count 345 (150-400) X10^3/uL Neut % (Auto) 47.8 L (50-75) % Lymph % (Auto) 41.0 H (25-40) % [place] % (Auto) 6.8 (3-14) % Eos % (Auto) 3.8 (2-4) % Baso % (Auto) 0.6 (0-2) % Neut # (Auto) 4000 (8970-4849) /uL Lymph # (Auto) 3500 (7721-5437) /uL [place] # (Auto) 600 (0-900) /uL Eos # (Auto) 300 (0-450) /uL Baso # (Auto) 100 (0-100) /uL Sodium 136 L (137-145) mmol/L Potassium 4.0 (3.4-5.1) mmol/L Chloride 102 (98-107) mmol/L Carbon Dioxide 26 (22-32) mmol/L BUN 19 H (7-17) mg/dL Creatinine 0.72 (0.52-1.04) mg/dL Estimated GFR > 60 (>60) mL/min BUN/Creatinine Ratio 26.4 H (6-22) Glucose 102 H (70-100) mg/dL Calcium 9.2 (8.4-10.2) mg/dL Total Bilirubin 0.5 (0.2-1.3) mg/dL AST 43 H (14-36) IU/L ALT 34 (<35) IU/L Alkaline Phosphatase 77 (38-126) U/L Total Protein 7.2 (6.3-8.2) g/dL Albumin 4.0 (3.5-5.0) g/dL Globulin 3.2 (1.7-4.1) g/dL Albumin/Globulin Ratio 1.3 (1.0-2.8) Lipase 65 (23-300) U/L Urine Color Yellow Urine Appearance Cloudy Urine pH 5.5 (4.5-8.0) Ur Specific [place] >=1.030 H (1.000-1.035) Urine Protein 2+ H (Negative) Urine Glucose (UA) Negative (Negative) g/dL Urine Ketones Negative (NEGATIVE) Urine Occult Blood 3+ H (Negative) Urine Nitrate Negative (Negative) Urine Bilirubin Negative (NEGATIVE) Urine Urobilinogen 0.2 (0.2) E.U./dL Ur Leukocyte Esterase Negative (NEGATIVE) Urine RBC 30-100/hpf H (0-5/HPF) Urine WBC 0-1/hpf (0-5/HPF) Ur Squamous Epith Cells 0-1 /hpf D (0-5/HPF) Urine Bacteria None seen (None) Ur Culture Indicated? Cult not indicated Vol Urine Centrifuged 10ml (spun) Urine Test Negative (Negative) Imaging Data CT scan - abdomen/pelvis: Radiologist's Impression: Dr. Yates from radiology called with results, 2.7mm stone on the right distal ureteral stone. No appendectomy. Some mild hydro. Does note some nodular changes in the lung base of the left lower lobe, could be atelectasis versus infection. Close Abdomen/Pelvis CT (Signed) Steven Yates - 11/15/23 Chest X-Ray (Signed) AngelaJc - 02/05/23 Chest X-Ray (Signed) Vadim Dang - 11/09/21 Pelvis Ultrasound (Signed) Roscoe Jacob - 02/03/19 [place] [id number] CT Scan Report Signed Patient: Alexy Melo MR#: [id number] : 1995 Acct:[id number] Age/Sex: 28 / F Date of Service: 11/15/23 Loc: ED Accession Number: [id number] Procedure: CT abdomen pelvis w con Ordering Provider: Shandra Glover D.O. PROCEDURE: CT ABDOMEN PELVIS W CON INDICATIONS: RLQ/flank pain x 3 days. + hematuria TECHNIQUE: After the administration of intravenous contrast, axial sections acquired from the lung bases to the pubic symphysis. Coronal and sagittal reformats were performed. For radiation dose reduction, the following was used: automated exposure control, adjustment of mA and/or kV according to patient size. COMPARISON: None. FINDINGS: Image quality: Diagnostic. Lower Chest: Mild left lower lobe infiltrate suspicious for pneumonia. ABDOMEN: Liver: No solid mass. Normal size. Mild hepatic steatosis. Gallbladder: No radiopaque gallstones or wall thickening. Biliary ducts: No biliary dilation. Pancreas: No ductal dilation. Spleen: Size is within normal limits. Adrenal Glands: No adrenal nodules. Kidneys and Ureters: Mild right hydronephrosis. There is a 2.7 mm stone in the distal right ureter near the ureterovesical junction. No solid mass. No complex renal cystic lesion which requires follow up. Stomach and Bowel: Normal colonic caliber, without significant wall thickening. Peritoneum: No abnormal intraperitoneal fluid. No free air. Ventral Wall: No hernia. Abdominal Nodes: No retroperitoneal or mesenteric adenopathy by size criteria. Vessels: Aorta and inferior vena cava are normal in size. PELVIS: Pelvic Organs: Unremarkable. Bladder: Unremarkable. Pelvic Nodes: No enlarged lymph nodes. Miscellaneous: No inguinal hernias are seen. Bones: No aggressive osseous abnormality. IMPRESSION: 1. Normal appendix. A cause for right lower quadrant pain is not identified. 2. There is a 2.7 mm stone in the right distal ureter near the right UVJ causing mild right hydronephrosis. 3. Mild right basilar infiltrate suspicious for mild pneumonia. Dictated by: Steven Yates M.D. on 11/16/2023 at 0:13 Approved by: Steven Yates M.D. on 11/16/2023 at 0:20 [facility] Narrative Medical decision making narrative: 28-year-old female with right flank pain radiating to the right lower quadrant. Afebrile, patient's blood pressure was a little bit low here in the department initially. White count 8.4, elevated lymphocytes, normal platelets and hemoglobin of 13. Sodium of 136, potassium is 4 BUN 19 with a normal renal function 0.72 glucose is 102, total bili 80s negative, AST is 43, ALT are 34 alk-phos 77 with normal lipase. Urine shows 2+ protein, 3+ blood, 30-100 red cells, 0-1 white cells, 0-[address] is negative[address] abdomen pelvis shows 2.7 mm right stone in the distal ureter with mild moderate hydro, normal appendix, mild left lower lobe infiltrate. Patient has not had any reported cough cold symptoms. We will hold off on treating with any antibiotics for pneumonia. On recheck after medications patient states pain is significantly improving. Plan for Flomax, pain management and follow up with Urology as needed. Reviewed return precautions. Patient feels comfortable with that plan. Discharge Plan Departure Patient Disposition: Home Clinical Impression: Kidney stone on right side Instructions: DI for Kidney Stones Activity Restrictions/Additional Instructions: Please follow up with Urology if your symptoms continue to persist. You have a 2.7 mm stone in the distal ureter. This will likely pass in the next few days. You may take Tylenol up to a 1000 mg every 6 hours as needed for pain and/or you can take ibuprofen up to 600 mg every 6 hours as needed for pain. If in adequate take oxycodone 1-2 tablets every 6 hours as needed for pain. This medication can make you sleepy do not drive, perform hazardous activities or make any major decisions while taking it. This medication will make you constipated please take a stool softener once to twice daily until stools are soft and regular. You can take Zofran 1 tablet every 6 hours as needed for nausea. Take tamsulosin 1 tablet daily until gone. Prescription sent to [facility] in [place] Please return for fevers, new or worsening abdominal back or flank pain, persistent vomiting, lightheadedness or passing out or other new or concerning changes. Prescriptions: New tamsulosin 0.4 mg capsule 0.4 mg PO DAILY Qty: 7 0RF ondansetron 4 mg tablet,disintegrating 4 mg PO QID PRN (Reason: nausea and vomiting) Qty: 10 0RF oxycodone 5 mg tablet 5 mg PO Q6H PRN (Reason: pain) Qty: 14 0RF No Action albuterol sulfate 1.25 mg/3 mL solution for nebulization 1.25 mg inhalation QID PRN bupropion HCl [Wellbutrin SR] 150 mg tablet sustained-release 12 hr 150 mg PO BID aripiprazole 2 mg tablet 2 mg PO DAILY Flovent Diskus 100 mcg/actuation blister with device 1 inh inhalation Q12H azithromycin 250 mg tablet See Rx Instructions PO .COMPLEX Qty: 6 0RF Rx Instructions: For 250 mg dose pack: take 500 mg today (day 1), then 250 mg for 4 days (days 2-5) PO methocarbamol 500 mg tablet 500 mg PO TID PRN (Reason: muscle pain) Qty: 20 0RF lidocaine [Lidoderm] 5 % adhesive patch,medicated 1 patch topical DAILY PRN (Reason: muscle pain) Qty: 15 0RF Rx Instructions: leave on most painful area for up to 12 hrs Referrals: Christiana Doe DO [Primary Care Provider] - Juan Marin MD [Physician] - Stand Alone Forms: Patient Portal/API
[2023-11-15 23:09] LABS: Pregnancy Test Urine Negative (Negative)
[2023-11-15] MEDS: SODIUM CHLORIDE 0.9% 1,000 ML 1000 ML IV (23:11)
[2023-11-15 23:15] LABS: Appearance Urine UA CLOUDY; Bilirubin Urine UA NEGATIVE (NEGATIVE); Color Urine UA YELLOW; Glucose Urine UA NEGATIVE (Negative); Ketones Urine UA NEGATIVE (NEGATIVE); Leukocyte Esterase Urine UA NEGATIVE (NEGATIVE); Nitrite Urine UA NEGATIVE (Negative); Occult Blood Urine UA 3+ (Negative); Protein Urine UA 2+ (Negative); Specific Gravity Urine UA >=1.030 (1.000-1.035); Urobilinogen Urine UA 0.2 E.U./dL (0.2)
[2023-11-15 23:15] LABS: Add Manual Diff / Slide Review NO; Basophils Absolute Auto 100 /uL (0-100); Basophils Percent Auto 0.6 % (0-2); Eosinophils Absolute Auto 300 /uL (0-450); Eosinophils Percent Auto 3.8 % (2-4); Hematocrit 37.4 % (36-46); Lymphocytes Absolute Auto 3500 /uL (1100-4500); Mean Corpuscular HGB Conc 34.9 % (30-36); Mean Corpuscular Hemoglobin 31.3 PG (26-34); Mean Corpuscular Volume 89.7 fL (80-100); Monocytes Absolute Auto 600 /uL (0-900); Monocytes Percent Auto 6.8 % (3-14); Neutrophils Absolute Auto 4000 /uL (1500-7000); Neutrophils Percent Auto 47.8 % (50-75); Platelet Count 345 X10^3/uL (150-400); Red Blood Cell Count 4.17 X10^6/uL (4.0-5.2); White Blood Cell Count 8.4 X10^3/uL (4.5-11.0)
[2023-11-15 23:16] LABS: RBC Urine 30-100/HPF (0-5/HPF); Urine Volume 10mL (spun); WBC Urine 0-1/HPF (0-5/HPF); pH Urine UA 5.5 (4.5-8.0)
[2023-11-15 23:17] LABS: Bacteria Urine None Seen; Culture Indicated Urine Cult Not Indicated; Squamous Epithelial Cell Urine 0-1 /HPF (0-5/HPF)
--- NOTE | 2023-11-15 23:17 | DI.CT.S_ITS ---
PROCEDURE: CT ABDOMEN PELVIS W CON INDICATIONS: RLQ/flank pain x 3 days. + hematuria TECHNIQUE: After the administration of intravenous contrast, axial sections acquired from the lung bases to the pubic symphysis. Coronal and sagittal reformats were performed. For radiation dose reduction, the following was used: automated exposure control, adjustment of mA and/or kV according to patient size. COMPARISON: None. FINDINGS: Image quality: Diagnostic. Lower Chest: Mild left lower lobe infiltrate suspicious for pneumonia. ABDOMEN: Liver: No solid mass. Normal size. Mild hepatic steatosis. Gallbladder: No radiopaque gallstones or wall thickening. Biliary ducts: No biliary dilation. Pancreas: No ductal dilation. Spleen: Size is within normal limits. Adrenal Glands: No adrenal nodules. Kidneys and Ureters: Mild right hydronephrosis. There is a 2.7 mm stone in the distal right ureter near the ureterovesical junction. No solid mass. No complex renal cystic lesion which requires follow up. Stomach and Bowel: Normal colonic caliber, without significant wall thickening. Peritoneum: No abnormal intraperitoneal fluid. No free air. Ventral Wall: No hernia. Abdominal Nodes: No retroperitoneal or mesenteric adenopathy by size criteria. Vessels: Aorta and inferior vena cava are normal in size. PELVIS: Pelvic Organs: Unremarkable. Bladder: Unremarkable. Pelvic Nodes: No enlarged lymph nodes. Miscellaneous: No inguinal hernias are seen. Bones: No aggressive osseous abnormality. IMPRESSION: 1. Normal appendix. A cause for right lower quadrant pain is not identified. 2. There is a 2.7 mm stone in the right distal ureter near the right UVJ causing mild right hydronephrosis. 3. Mild right basilar infiltrate suspicious for mild pneumonia. Dictated by: Steven Yates M.D. on 11/16/2023 at 0:13 Approved by: Steven Yates M.D. on 11/16/2023 at 0:20
[2023-11-15] MEDS: KETOROLAC 30 MG/ML VIAL 15 MG IV (23:21)
[2023-11-15 23:30] LABS: Alanine Aminotransferase 34 IU/L (<35); Albumin Globulin Ratio 1.3 (1.0-2.8); Alkaline Phosphatase 77 U/L (38-126); Aspartate Aminotransferase 43 IU/L (14-36); BUN Creatinine Ratio 26.4 (6-22); Bilirubin Total 0.5 mg/dL (0.2-1.3); Blood Urea Nitrogen 19 mg/dL (7-17); Calcium 9.2 mg/dL (8.4-10.2); Carbon Dioxide 26 mmol/L (22-32); Chloride 102 mmol/L (98-107); Estimated Glomerular Filt Rate > 60 mL/min (>60); Globulin 3.2 g/dL (1.7-4.1); Glucose 102 mg/dL (70-100); HEMOLYSIS 22 (0-50); Lipase 65 U/L (23-300); Sodium 136 mmol/L (137-145); Total Protein 7.2 g/dL (6.3-8.2)
[2023-11-16] VITALS (8 sets, daily range): BP systolic 95–121; BP diastolic 50–67; PULSE 69–80; RESP 23–24; TEMP 36.4; O2SAT 97–99
[2023-11-16] MEDS: TAMSULOSIN 0.4 MG CAPSULE PO (00:45)
[2023-11-16] MEDS: OXYCODONE/APAP 5/325 PREPACK 1 BOTTLE MISC (00:46)
[2023-11-16] MEDS: ONDANSETRON 4 MG ODT PREPACK 1 BOTTLE MISC (00:46)
== END 2023-11-16 01:00 | disposition home or self-care (01) ==
PROVIDERS: Emergency Provider Emergency Medicine; PCP Family Medicine
DX: N20.0 Calculus of kidney (principal)
CPT/HCPCS: 36415; 74177; 80053; 81003; 81015; 81025; 83690; 85025; 96361; 96374; 96375; 99284; J1885; J2405; Q9967

== ENCOUNTER 2023-11-18 10:38 | Emergency (ER) | payer OTHER, MEDICAID, SELFPAY ==
[2023-11-18] VITALS (10 sets, daily range): BP systolic 114–136; BP diastolic 60–80; PULSE 70–82; RESP 11–20; TEMP 36.6–36.7; O2SAT 95–99; BMI 39.6
--- NOTE | 2023-11-18 10:57 | DI.US.S_ITS ---
PROCEDURE: US PERIPH VENOUS LOW EXTREM BI INDICATIONS: BLE edema, recent flight TECHNIQUE: Real-time imaging, as well as color and pulse Doppler interrogation, were performed of the deep veins of both legs from the inguinal ligament to the popliteal fossa, with documentation of the visualized calf veins. COMPARISON: None. FINDINGS: Right: The common femoral, femoral, popliteal, and the visualized calf veins are normally compressible, and free of intraluminal thrombus. Color and pulse Doppler demonstrate normal phasic intravascular flow. There is normal augmentation response to distal compression maneuver. Left: The common femoral, femoral, popliteal, and the visualized calf veins are normally compressible, and free of intraluminal thrombus. Color and pulse Doppler demonstrate normal phasic intravascular flow. There is normal augmentation response to distal compression maneuver. IMPRESSION: No findings of deep venous thrombosis in either lower extremity. Dictated by: Ayana Rivas M.D. on 11/18/2023 at 12:17 Approved by: Ayana Rivas M.D. on 11/18/2023 at 12:18
--- NOTE | 2023-11-18 10:58 | ED.FEMALEGU ---
HPI - Female Genitourinary General Chief complaint: Urogenital-Female Stated complaint: 11/15 here for kid stone, cant feelfeetswollen,pain Time Seen by Provider: 11/18/23 10:50 Source: patient Mode of arrival: Ambulatory History of Present Illness HPI Narrative: 28-year-old female presents for bilateral lower extremity edema. Patient was seen several days ago for flank pain, she was diagnosed with a 2.7 mm kidney stone and discharged with pain medication and Flomax. She states that since she has been home her feet feel swollen and it is causing her pain. Prior to being diagnosed with a kidney stone she did have a flight from [place] back to the [facility]. Related Data Home Medications Medication Instructions Recorded Confirmed albuterol sulfate 1.25 mg/3 mL 1.25 mg inhalation QID PRN 09/20/21 09/20/21 solution for nebulization aripiprazole 2 mg tablet 2 mg PO DAILY 12/05/22 bupropion HCl 150 mg tablet,12 hr 150 mg PO BID 12/05/22 sustained-release (Wellbutrin SR) fluticasone propionate 100 1 inh inhalation Q12H 12/05/22 mcg/actuation blister powder for inhalation (Flovent Diskus) Previous Rx's Medication Instructions Recorded azithromycin 250 mg tablet See Rx Instructions PO .COMPLEX #6 12/05/22 tabs lidocaine 5 % topical patch 1 patch topical DAILY PRN muscle 02/05/23 (Lidoderm) pain #15 ea methocarbamol 500 mg tablet 500 mg PO TID PRN muscle pain #20 02/05/23 tabs ondansetron 4 mg disintegrating 4 mg PO QID PRN nausea and 11/16/23 tablet vomiting #10 tabs oxycodone 5 mg tablet 5 mg PO Q6H PRN pain #14 tabs 11/16/23 tamsulosin 0.4 mg capsule 0.4 mg PO DAILY #7 caps 11/16/23 furosemide 20 mg tablet 20 mg PO DAILY #7 tabs 11/18/23 Allergies Allergy/AdvReac Type Severity Reaction Status Date / Time Penicillins Allergy Unknown Verified 11/18/23 10:42 Review of Systems Review of Systems Narrative: Negative except as noted above Patient History Medical History Asthma exacerbation Fractures (~10/2010) Irregular menstrual cycle Human papilloma virus (~03/2018) Abnormal Pap smear of cervix (~03/2018) Anxiety (~03/2016) Asthma (~1999) GERD (gastroesophageal reflux disease) Dyspareunia Surgical History Anesthesia History of hysteroscopy (03/14/19) S/P laparoscopy (03/14/19) History of ankle surgery (~02/08/19) Family History Father Hyperlipidemia Mother Breast cancer Bone tumor Sister Vertigo Family history of thyroid problem Grandfather Dementia Lives in halfway Grandmother Lives in halfway Breast cancer Grandfather Mental health problem Paranoid schizophrenia History of suicide attempt tobacco type: vaping alcohol intake frequency: holidays/special occasions only Substance Use Type: marijuana Exam Initial Vital Signs Initial Vital Signs: Vital Signs Temperature 97.8 F 11/18/23 10:42 Pulse Rate 82 11/18/23 10:42 Respiratory Rate 15 11/18/23 10:42 Blood Pressure 136/80 11/18/23 10:42 Pulse Oximetry 95 11/18/23 10:42 Oxygen Delivery Method Room Air 11/18/23 10:42 Const: Awake, alert, no acute distress, nontoxic appearing Cardiac: regular rate, regular rhythm RESP: unlabored, clear bilaterally, no wheezing GI: Atraumatic, soft, nontender, nondistended, no rebound, no guarding MSK: Nonpitting edema bilateral lower extremities Skin: Warm, Dry, intact, no rashes Neuro: AO x3, CN II-XII grossly intact, moves all extremities Psych: Flat affect, mood normal, not suicidal, not homicidal Course Orders Ordered: Discontinued Medications Furosemide (Furosemide 40 Mg/4 Ml Vial) 20 mg IV NOW ONE Stop: 11/18/23 12:30 Last Admin: 11/18/23 12:40 Dose: 20 mg Documented By: JACQUELINE Sodium Chloride (Normal Saline 0.9%) 1,000 mls @ 1,000 mls/hr IV BOLUS ONE Stop: 11/18/23 11:56 Last Infusion: 11/18/23 12:13 Dose: Infused Documented By: Admin: 11/18/23 11:19 Dose: 1,000 mls/hr Documented By: RB Sodium Chloride (Normal Saline 0.9%) 1,000 mls @ 1,000 mls/hr IV BOLUS ONE Stop: 11/18/23 12:26 Last Admin: 11/18/23 11:29 Dose: Not Given Documented By: RB Ketorolac Tromethamine (Ketorolac 30 Mg/Ml Vial) 15 mg IV NOW ONE Stop: 11/18/23 10:58 Last Admin: 11/18/23 11:19 Dose: 15 mg Documented By: RB Morphine Sulfate (Morphine 4 Mg/Ml Inj) 4 mg IV NOW ONE Stop: 11/18/23 11:28 Last Admin: 11/18/23 11:30 Dose: Not Given Documented By: RB Vital Signs Vital signs: Vital Signs - 8 hr 11/18/23 10:42 11/18/23 10:50 11/18/23 10:50 Temperature 97.8 F Pulse Rate 82 82 Respiratory Rate 15 Blood Pressure 136/80 123/67 Pulse Oximetry 95 96 Oxygen Delivery Method Room Air 11/18/23 11:00 11/18/23 11:00 11/18/23 11:30 Temperature Pulse Rate 75 77 Respiratory Rate Blood Pressure 120/67 Pulse Oximetry 95 97 Oxygen Delivery Method 11/18/23 11:31 11/18/23 11:31 11/18/23 12:10 Temperature Pulse Rate 79 75 Respiratory Rate 13 Blood Pressure 135/60 Pulse Oximetry 97 98 Oxygen Delivery Method 11/18/23 12:11 11/18/23 12:11 Temperature Pulse Rate 74 Respiratory Rate 11 L Blood Pressure 115/69 Pulse Oximetry 98 Oxygen Delivery Method MDM - Female Genitourinary Lab Data 11/18/23 11:05 11/18/23 11:05 Labs: Lab Results 11/18/23 Range/Units 11:05 WBC 4.9 (4.5-11.0) X10^3/uL RBC 4.06 (4.0-5.2) X10^6/uL Hgb 12.6 (12.0-16.0) g/dL Hct 36.3 (36-46) % MCV 89.6 (80-100) fL MCH 31.0 (26-34) PG MCHC 34.6 (30-36) % RDW 12.7 (11.6-14.8) % Plt Count 318 (150-400) X10^3/uL Neut % (Auto) 37.5 L (50-75) % Lymph % (Auto) 48.8 H (25-40) % [place]ardo % (Auto) 6.3 (3-14) % Eos % (Auto) 6.9 H (2-4) % Baso % (Auto) 0.5 (0-2) % Neut # (Auto) 1800 (5753-5563) /uL Lymph # (Auto) 2400 (0325-9040) /uL [place]ardo # (Auto) 300 (0-900) /uL Eos # (Auto) 300 (0-450) /uL Baso # (Auto) 0 (0-100) /uL PT 11.5 (9.4-12.5) SECONDS INR 1.0 (0.9-1.3) Sodium 135 L (137-145) mmol/L Potassium 4.0 (3.4-5.1) mmol/L Chloride 102 (98-107) mmol/L Carbon Dioxide 28 (22-32) mmol/L BUN 10 (7-17) mg/dL Creatinine 0.64 (0.52-1.04) mg/dL Estimated GFR > 60 (>60) mL/min BUN/Creatinine Ratio 15.6 (6-22) Glucose 97 (70-100) mg/dL Calcium 8.9 (8.4-10.2) mg/dL Total Bilirubin 0.7 (0.2-1.3) mg/dL AST 32 (14-36) IU/L ALT 33 (<35) IU/L Alkaline Phosphatase 71 (38-126) U/L Total Creatine Kinase 90 (30-135) U/L Troponin I < 0.012 (0.01-0.034) ng/mL NT-Pro-B Natriuret Pep 964 H (<125) pg/mL Total Protein 7.0 (6.3-8.2) g/dL Albumin 3.8 (3.5-5.0) g/dL Globulin 3.2 (1.7-4.1) g/dL Albumin/Globulin Ratio 1.2 (1.0-2.8) Point of Care Testing Test Results Negative Urine Dip Bedside Urine Glucose Negative Bedside Urine Bilirubin - Negative Bedside Urine Ketone - Negative Urine Specific Lanse 1.015 Bedside Urine Occult Blood ++ Bedside Urine pH 7.5 Bedside Urine Protein - Negative Bedside Urine Urobilinogen - Negative Bedside Urine Nitrite - Negative Bedside Urine Leukocytes - Negative Esterase MDM Narrative Medical decision making narrative: Well-appearing patient with bilateral lower extremity swelling after flight from [place]. No respiratory symptoms, oxygen stable on room air. Laboratory work shows elevation in BNP of uncertain significance. Troponin undetectable, other laboratory work within normal limits. Bilateral lower extremity ultrasound is negative for DVT or other acute process. Patient counseled to findings, she was advised that she should continue her care at home for kidney stones and a short course of Lasix was sent to pharmacy of choice. Close PCP follow up advised. Discharge Plan Departure Patient Disposition: Home Clinical Impression: Edema Instructions: DI for Peripheral Edema -- Bilateral Activity Restrictions/Additional Instructions: you were seen today for swelling. Your labs show that you are retaining fluid, but your ultrasound was negative for a blood clot in your legs. Continue your pain medication for your kidney stone as usual. Please follow up with your primary care doctor for your swelling. I am going to send a short course of medication to the pharmacy that will help remove the fluid from your body. Be careful with your salt intake as this can lead to increasing fluid. Prescriptions: New furosemide 20 mg tablet 20 mg PO DAILY Qty: 7 0RF No Action albuterol sulfate 1.25 mg/3 mL solution for nebulization 1.25 mg inhalation QID PRN bupropion HCl [Wellbutrin SR] 150 mg tablet sustained-release 12 hr 150 mg PO BID aripiprazole 2 mg tablet 2 mg PO DAILY Flovent Diskus 100 mcg/actuation blister with device 1 inh inhalation Q12H azithromycin 250 mg tablet See Rx Instructions PO .COMPLEX Qty: 6 0RF Rx Instructions: For 250 mg dose pack: take 500 mg today (day 1), then 250 mg for 4 days (days 2-5) PO tamsulosin 0.4 mg capsule 0.4 mg PO DAILY Qty: 7 0RF ondansetron 4 mg tablet,disintegrating 4 mg PO QID PRN (Reason: nausea and vomiting) Qty: 10 0RF oxycodone 5 mg tablet 5 mg PO Q6H PRN (Reason: pain) Qty: 14 0RF methocarbamol 500 mg tablet 500 mg PO TID PRN (Reason: muscle pain) Qty: 20 0RF lidocaine [Lidoderm] 5 % adhesive patch,medicated 1 patch topical DAILY PRN (Reason: muscle pain) Qty: 15 0RF Rx Instructions: leave on most painful area for up to 12 hrs Referrals: Christiana Doe DO [Primary Care Provider] - Stand Alone Forms: Patient Portal/API
[2023-11-18 11:18] LABS: Add Manual Diff / Slide Review NO; Basophils Absolute Auto 0 /uL (0-100); Basophils Percent Auto 0.5 % (0-2); Eosinophils Absolute Auto 300 /uL (0-450); Eosinophils Percent Auto 6.9 % (2-4); Hematocrit 36.3 % (36-46); Hemoglobin 12.6 g/dL (12.0-16.0); Lymphocytes Absolute Auto 2400 /uL (1100-4500); Lymphocytes Percent Auto 48.8 % (25-40); Mean Corpuscular HGB Conc 34.6 % (30-36); Mean Corpuscular Volume 89.6 fL (80-100); Monocytes Absolute Auto 300 /uL (0-900); Monocytes Percent Auto 6.3 % (3-14); Neutrophils Absolute Auto 1800 /uL (1500-7000); Neutrophils Percent Auto 37.5 % (50-75); Platelet Count 318 X10^3/uL (150-400); Red Blood Cell Count 4.06 X10^6/uL (4.0-5.2); Red Cell Distribution Width 12.7 % (11.6-14.8); White Blood Cell Count 4.9 X10^3/uL (4.5-11.0)
[2023-11-18] MEDS: KETOROLAC 30 MG/ML VIAL 15 MG IV (11:19)
[2023-11-18] MEDS: SODIUM CHLORIDE 0.9% 1,000 ML 1000 ML IV (11:19)
[2023-11-18 11:25] LABS: Prothrombin Time 11.5 SECONDS (9.4-12.5)
[2023-11-18 11:34] LABS: Creatine Kinase 90 U/L (30-135)
[2023-11-18 11:36] LABS: Alanine Aminotransferase 33 IU/L (<35); Albumin 3.8 g/dL (3.5-5.0); Albumin Globulin Ratio 1.2 (1.0-2.8); Alkaline Phosphatase 71 U/L (38-126); Aspartate Aminotransferase 32 IU/L (14-36); BUN Creatinine Ratio 15.6 (6-22); Bilirubin Total 0.7 mg/dL (0.2-1.3); Blood Urea Nitrogen 10 mg/dL (7-17); Calcium 8.9 mg/dL (8.4-10.2); Carbon Dioxide 28 mmol/L (22-32); Chloride 102 mmol/L (98-107); Estimated Glomerular Filt Rate > 60 mL/min (>60); Globulin 3.2 g/dL (1.7-4.1); Glucose 97 mg/dL (70-100); HEMOLYSIS 22 (0-50); Sodium 135 mmol/L (137-145)
[2023-11-18 11:45] LABS: NT-proBNP (BNP-Adult 18+) 964 pg/mL (<125); Troponin I < 0.012 ng/mL (0.01-0.034)
[2023-11-18] MEDS: FUROSEMIDE 40 MG/4 ML VIAL 20 MG IV (12:40)
== END 2023-11-18 13:07 | disposition home or self-care (01) ==
PROVIDERS: Emergency Provider Emergency Medicine; PCP Family Medicine
DX: R60.0 Localized edema (principal)
CPT/HCPCS: 36415; 80053; 81003; 81025; 82550; 83880; 84484; 85025; 85610; 93970; 96361; 96374; 96375; 99284; J1885; J1940

== ENCOUNTER 2023-12-08 10:37 | Emergency (ER) | payer OTHER, MEDICAID, SELFPAY ==
[2023-12-08 10:42] VITALS: BP 120/83; PULSE 84; RESP 18; TEMP 36.7; O2SAT 97; BMI 47.5
--- NOTE | 2023-12-08 10:49 | DI.RAD.S_ITS ---
PROCEDURE: XR CHEST 2V INDICATIONS: cough/ fever TECHNIQUE: 2 views of the chest were acquired. COMPARISON: [facility], CR, XR CHEST 2V, 02/05/2023, 17:01. FINDINGS: Surgical changes and devices: None. Lungs and pleura: Lungs are clear. No pleural effusions or pneumothorax. Mediastinum: Mediastinal contours are normal. Heart size is normal. Bones and chest wall: No suspicious bony abnormalities. Soft tissues appear unremarkable. IMPRESSION: No acute cardiopulmonary abnormality is seen. Dictated by: Saumya Zuniga M.D. on 12/08/2023 at 11:01 Approved by: Saumya Zuniga M.D. on 12/08/2023 at 11:02
[2023-12-08 11:49] LABS: Influenza A - CEPHEID Flu A NEGATIVE (NEGATIVE); Influenza B - CEPHEID Flu B NEGATIVE (NEGATIVE); Respiratory Syncytial Virus Negative (Negative)
[2023-12-08 11:50] LABS: COVID-19 CEPHEID 4-PLEX PCR Negative (Negative)
[2023-12-08] MEDS: hydrOXYzine HCL 25 MG TABLET 50 MG PO (12:44)
--- NOTE | 2023-12-08 13:34 | ED_ITS ---
HPI - URI/Sore Throat <Magaly Morillo PA-C - Last Filed: 12/08/23 13:45> General Chief Complaint: Upper Respiratory Symptoms Stated Complaint: SOB/chest and upper back pain Time Seen by Provider: 12/08/23 11:27 Source: patient Mode of arrival: Ambulatory History of Present Illness HPI Narrative: 28-year-old female with past medical history bipolar disorder, asthma presents to the ED with 5 days of cold symptoms. Patient came into the ED today since she felt like she was not getting enough air in her lungs. Patient has been using a albuterol nebulizer every 4 hours, last use was 1 hour prior to arrival in the ED. patient endorses fever. Denies chest pain, nausea, vomiting, diarrhea. Patient sees a therapist for bipolar disorder. Patient endorses that she is very anxious, her anxiety worsens when she feels like she can not breathe. Related Data Home Medications Medication Instructions Recorded Confirmed albuterol sulfate 1.25 mg/3 mL 1.25 mg inhalation QID PRN 09/20/21 09/20/21 solution for nebulization aripiprazole 2 mg tablet 2 mg PO DAILY 12/05/22 bupropion HCl 150 mg tablet,12 hr 150 mg PO BID 12/05/22 sustained-release (Wellbutrin SR) fluticasone propionate 100 1 inh inhalation Q12H 12/05/22 mcg/actuation blister powder for inhalation (Flovent Diskus) Previous Rx's Medication Instructions Recorded azithromycin 250 mg tablet See Rx Instructions PO .COMPLEX #6 12/05/22 tabs lidocaine 5 % topical patch 1 patch topical DAILY PRN muscle 02/05/23 (Lidoderm) pain #15 ea methocarbamol 500 mg tablet 500 mg PO TID PRN muscle pain #20 02/05/23 tabs ondansetron 4 mg disintegrating 4 mg PO QID PRN nausea and 11/16/23 tablet vomiting #10 tabs oxycodone 5 mg tablet 5 mg PO Q6H PRN pain #14 tabs 11/16/23 tamsulosin 0.4 mg capsule 0.4 mg PO DAILY #7 caps 11/16/23 furosemide 20 mg tablet 20 mg PO DAILY #7 tabs 11/18/23 hydroxyzine HCl 25 mg tablet 25 mg PO QID PRN anxiety #20 tabs 12/08/23 Allergies Allergy/AdvReac Type Severity Reaction Status Date / Time Penicillins Allergy Unknown Verified 11/18/23 10:42 Review of Systems <Magaly Morillo PA-C - Last Filed: 12/08/23 13:45> Constitutional Constitutional: Denies chills, Denies fatigue, Reports fever(s), Denies frequent falls, Denies lethargy and Denies weakness Eyes Eyes: Denies change in vision, Denies eye discharge, Denies irritation and Denies loss of vision ENT Ears, Nose, Mouth, and Throat: Denies change in voice, Denies dizziness, Denies neck pain, Denies sore throat and Denies throat swelling Cardiovascular Cardiovascular: Denies chest pain, Denies irregular heart rhythm, Denies lighthe adedness, Denies palpitations, Reports dyspnea, Denies dyspnea on exertion and Denies orthopnea Respiratory Respiratory: Reports cough, Reports dyspnea, Denies dyspnea on exertion and Denies wheezing Gastrointestinal Gastrointestinal: Denies abdominal pain, Denies change in bowel habits, Denies diarrhea, Denies nausea and Denies vomiting Musculoskeletal Musculoskeletal: Denies neck pain and Denies numbness Integumentary/Breasts Skin/Breast: Denies pruritus, Denies erythema, Denies rash and Denies wounds Neurologic Neurologic: Denies behavioral changes, Denies confusion, Denies dizziness, Denies frequent falls, Denies loss of vision, Denies numbness and Denies weakness Psychiatric Psychiatric: Reports anxiety, Denies behavioral changes, Denies confusion, Denies depression, Denies homicidal ideation and Denies suicidal ideation Endocrine Endocrine: Denies fatigue, Denies flushing and Denies palpitations Hematologic/Lymphatic Hematologic/Lymphatic: Denies easy bruising Allergic/Immunologic Allergic/Immunologic: Denies urticaria, Denies throat swelling and Denies wheezing Patient History <Magaly Morillo PA-C - Last Filed: 12/08/23 13:45> Medical History Asthma exacerbation Fractures (~10/2010) Irregular menstrual cycle Human papilloma virus (~03/2018) Abnormal Pap smear of cervix (~03/2018) Anxiety (~03/2016) Asthma (~1999) GERD (gastroesophageal reflux disease) Dyspareunia Surgical History Anesthesia History of hysteroscopy (03/14/19) S/P laparoscopy (03/14/19) History of ankle surgery (~02/08/19) Family History Father Hyperlipidemia Mother Breast cancer Bone tumor Sister Vertigo Family history of thyroid problem Grandfather Dementia Lives in senior living Grandmother Lives in senior living Breast cancer Grandfather Mental health problem Paranoid schizophrenia History of suicide attempt Social History household members: friend(s) Smoking Status: Current every day smoker quit status: considering quitting second hand exposure: Yes (work at [employer]) alcohol intake: never substance use type: marijuana Smoking Status: Current every day smoker tobacco type: vaping alcohol intake frequency: holidays/special occasions only Substance Use Type: marijuana Exam <Magaly Morillo PA-C - Last Filed: 12/08/23 13:45> Narrative Exam Narrative: Const General:?cooperative, healthy appearing and comfortable; patient appears anxious, breathing rapidly HENMT Head:?normal to inspection Ears:?hearing grossly normal bilaterally Nose:?external nose normal Face and sinus:?normal facial exam and sinuses nontender Mouth:?oral mucosae normal Throat:?posterior oropharynx normal Eyes General:?appearance normal, both eyes and all related structures Neck Neck:?normal visual inspection and no lymphadenopathy noted Resp Effort & Inspection:?normal respiratory effort Auscultation:?clear to auscultation bilaterally Cardio Rate:?regular rate Rhythm:?regular rhythm Neuro General:?patient alert, patient awake and patient oriented x3 Initial Vital Signs Initial Vital Signs: Vital Signs Temperature 98.0 F 12/08/23 10:42 Pulse Rate 84 12/08/23 10:42 Respiratory Rate 18 12/08/23 10:42 Blood Pressure 120/83 12/08/23 10:42 Pulse Oximetry 97 12/08/23 10:42 Oxygen Delivery Method Room Air 12/08/23 10:42 <Domingo Calderón MD - Last Filed: 12/08/23 19:32> Initial Vital Signs Initial Vital Signs: Vital Signs Temperature 98.0 F 12/08/23 10:42 Pulse Rate 84 12/08/23 10:42 Respiratory Rate 18 12/08/23 10:42 Blood Pressure 120/83 12/08/23 10:42 Pulse Oximetry 97 12/08/23 10:42 Oxygen Delivery Method Room Air 12/08/23 10:42 Scores <Magaly Morillo PA-C - Last Filed: 12/08/23 13:45> PERC Score Age greater than or equal to 50 years: No Heart rate greater than or equal to 100 bpm: No Room Air O2 Sat less than 95%: No Unilateral leg swelling: No Recent trauma or surgery: No Hemoptysis: No Prior PE or DVT: No Hormone Use: No Total PERC Score: 0 <Domingo Calderón MD - Last Filed: 12/08/23 19:32> PERC Score Total PERC Score: 0 Course <Magaly Morillo PA-C - Last Filed: 12/08/23 13:45> Orders Ordered: ED Orders 12/08/23 10:49 XR chest 2V Stat 12/08/23 10:50 Covid-19 + FLU A/B + RSV - PCR Stat Discontinued Medications Hydroxyzine HCl (Hydroxyzine Hcl 25 Mg Tablet) 50 mg PO NOW ONE Stop: 12/08/23 12:32 Last Admin: 12/08/23 12:44 Dose: 50 mg Documented By: RLS Vital Signs Vital signs: Vital Signs - 8 hr 12/08/23 13:39 Pulse Rate 70 Blood Pressure 108/59 L Pulse Oximetry 98 Oxygen Delivery Method Room Air <Domingo Calderón MD - Last Filed: 12/08/23 19:32> Orders Ordered: ED Orders 12/08/23 10:49 XR chest 2V Stat 12/08/23 10:50 Covid-19 + FLU A/B + RSV - PCR Stat Discontinued Medications Hydroxyzine HCl (Hydroxyzine Hcl 25 Mg Tablet) 50 mg PO NOW ONE Stop: 12/08/23 12:32 Last Admin: 12/08/23 12:44 Dose: 50 mg Documented By: RLS Vital Signs Vital signs: Vital Signs - 8 hr 12/08/23 13:39 Pulse Rate 70 Blood Pressure 108/59 L Pulse Oximetry 98 Oxygen Delivery Method Room Air MDM - URI/Sore Throat <Magaly Morillo PA-C - Last Filed: 12/08/23 13:45> Lab Data Labs: Lab Results 12/08/23 Range/Units 10:50 SARS-CoV-2 (PCR) Negative (Negative) Influenza A (RT-PCR) Flu a negative (NEGATIVE) Influenza B (RT-PCR) Flu b negative (NEGATIVE) RSV (PCR) Negative (Negative) MDM Narrative Medical decision making narrative: 28-year-old female with past medical history bipolar disorder, asthma presents to the ED with 5 days of cold symptoms. Lungs clear to auscultation bilaterally. Vitals within normal limits. Respiratory swab negative for COVID- 19, influenza, RSV. Patient's symptoms are most consistent with a viral upper respiratory infection. It also appears that patient very anxious, causing her to breathe faster. The albuterol use might also be contributing to her feeling more anxious. Unlikely PE, PERC negative. Patient was given a dose of hydroxyzine with good relief. Patient was able to calm down and slow down her breathing. Prescribed hydroxyzine for the next few days until the patient can see her therapist for further evaluation. ED return precautions were discussed with patient. Patient verbalized understanding. Medical records reviewed: Yes <Domingo Calderón MD - Last Filed: 12/08/23 19:32> Lab Data Labs: Lab Results 12/08/23 Range/Units 10:50 SARS-CoV-2 (PCR) Negative (Negative) Influenza A (RT-PCR) Flu a negative (NEGATIVE) Influenza B (RT-PCR) Flu b negative (NEGATIVE) RSV (PCR) Negative (Negative) Discharge Plan Departure Patient Disposition: Home Clinical Impression: Upper respiratory infection Qualifiers: URI type: unspecified URI Qualified Code(s): J06.9 - Acute upper respiratory infection, unspecified Instructions: DI for Viral Upper Respiratory Infection -- Adult Activity Restrictions/Additional Instructions: You were evaluated in the ED today for cold symptoms. Your x-ray was normal. Your respiratory panel was negative for COVID-19 infection, flu, RSV. It is l ikely your symptoms are caused by a viral upper respiratory infection. Your lungs are clear and you were not wheezing. Please refrain from using the albuterol nebulizer unless you are wheezing since it can make you jittery and anxious. You were given some hydroxyzine in the ED today that improved your symptoms. Please follow-up with your therapist for further evaluation. Return to the ED if you have chest pain, shortness of breath. Prescriptions: New hydroxyzine HCl 25 mg tablet 25 mg PO QID PRN (Reason: anxiety) Qty: 20 0RF No Action albuterol sulfate 1.25 mg/3 mL solution for nebulization 1.25 mg inhalation QID PRN bupropion HCl [Wellbutrin SR] 150 mg tablet sustained-release 12 hr 150 mg PO BID aripiprazole 2 mg tablet 2 mg PO DAILY Flovent Diskus 100 mcg/actuation blister with device 1 inh inhalation Q12H azithromycin 250 mg tablet See Rx Instructions PO .COMPLEX Qty: 6 0RF Rx Instructions: For 250 mg dose pack: take 500 mg today (day 1), then 250 mg for 4 days (days 2-5) PO tamsulosin 0.4 mg capsule 0.4 mg PO DAILY Qty: 7 0RF ondansetron 4 mg tablet,disintegrating 4 mg PO QID PRN (Reason: nausea and vomiting) Qty: 10 0RF oxycodone 5 mg tablet 5 mg PO Q6H PRN (Reason: pain) Qty: 14 0RF methocarbamol 500 mg tablet 500 mg PO TID PRN (Reason: muscle pain) Qty: 20 0RF lidocaine [Lidoderm] 5 % adhesive patch,medicated 1 patch topical DAILY PRN (Reason: muscle pain) Qty: 15 0RF Rx Instructions: leave on most painful area for up to 12 hrs furosemide 20 mg tablet 20 mg PO DAILY Qty: 7 0RF Referrals: Christiana Doe DO [Primary Care Provider] - Stand Alone Forms: Patient Portal/API ED Sign-out <Domingo Calderón MD - Last Filed: 12/08/23 19:32> Cosign ED Attending Saundra Attestation: I was immediately available in the department for consultation. Documentation has been reviewed. I agree with assessment and plan.
[2023-12-08 13:39] VITALS: BP 108/59; PULSE 70; O2SAT 98
== END 2023-12-08 13:40 | disposition home or self-care (01) ==
PROVIDERS: Emergency Medicine; Emergency Provider Student in an Organized Health Care Education/Training Program; PCP Family Medicine
DX: J06.9 Acute upper respiratory infection, unspecified (principal); F17.200 Nicotine dependence, unspecified, uncomplicated
CPT/HCPCS: 0241U; 71046; 99283; A9270

== ENCOUNTER → 2024-05-14 12:40 | Outpatient (CLI) | payer OTHER, SELFPAY ==
[2024-05-14 13:49] LABS: COVID-19 CEPHEID 4-PLEX PCR POSITIVE (Negative); Influenza A - CEPHEID Flu A NEGATIVE (NEGATIVE); Influenza B - CEPHEID Flu B NEGATIVE (NEGATIVE); Respiratory Syncytial Virus Negative (Negative)
== END ==
PROVIDERS: PCP Family Medicine; Visit Provider Physician Assistant
DX: R05.1 Acute cough (principal)
CPT/HCPCS: 0241U

== ENCOUNTER 2024-08-04 10:09 | Emergency (ER) | payer OTHER, SELFPAY ==
[2024-08-04] VITALS (8 sets, daily range): BP systolic 129–157; BP diastolic 65–77; PULSE 75–94; RESP 17–20; TEMP 36.9; O2SAT 96–98; BMI 43.9
--- NOTE | 2024-08-04 10:30 | ED_ITS ---
HPI - Abdominal Pain General Chief Complaint: Urogenital-Female Stated Complaint: Might be passing Kidney stones Time Seen by Provider: 08/04/24 10:24 History of Present Illness HPI narrative: 29-year-old female with right flank pain since yesterday, feels similar to previous kidney stones, some nausea without emesis, no diarrhea, no black stools, did have prior blood streaking with stooling felt to be hemorrhoidal in nature, ibuprofen not helping her pain. She denies painful urination, although does feel that her urine has looked darker, not grossly red/purple. She denies shortness of breath cough. No injury trauma or new activities. She does not take blood thinner medications. Related Data Home Medications Medication Instructions Recorded Confirmed albuterol sulfate 1.25 mg/3 mL 1.25 mg inhalation QID PRN 09/20/21 09/20/21 solution for nebulization aripiprazole 2 mg tablet 2 mg PO DAILY 12/05/22 bupropion HCl 150 mg tablet,12 hr 150 mg PO BID 12/05/22 sustained-release (Wellbutrin SR) fluticasone propionate 100 1 inh inhalation Q12H 12/05/22 mcg/actuation blister powder for inhalation (Flovent Diskus) albuterol sulfate 90 mcg/actuation 2 puff inhalation Q4-6H PRN 05/14/24 05/14/24 aerosol inhaler wheezing fluticasone propionate 110 2 puff inhalation BID 05/14/24 05/14/24 mcg/actuation HFA aerosol inhaler norethindrone acetate 1 mg-ethinyl 1 tab PO DAILY 05/14/24 05/14/24 estradiol 20 mcg tablet (Lexi) Previous Rx's Medication Instructions Recorded azithromycin 250 mg tablet See Rx Instructions PO .COMPLEX #6 12/05/22 tabs tamsulosin 0.4 mg capsule 0.4 mg PO DAILY #7 caps 11/16/23 hydroxyzine HCl 25 mg tablet 25 mg PO QID PRN anxiety #20 tabs 12/08/23 benzonatate 200 mg capsule 200 mg PO TID PRN cough #30 caps 05/14/24 fluticasone propionate 50 1 spray intranasal DAILY #16 grams 05/14/24 mcg/actuation nasal spray,suspension (Flonase Allergy Relief) guaifenesin 1,200 mg tablet, 1,200 mg PO Q12H #30 tabs 05/14/24 extended release 12 hr nirmatrelvir 300 mg (150 mg See Rx Instructions PO .COMPLEX 05/14/24 x2)-ritonavir 100 mg tablet,dose #30 ea pack (Paxlovid) methocarbamol 500 mg tablet 500 mg PO TID 7 days #21 tabs 08/04/24 Allergies Allergy/AdvReac Type Severity Reaction Status Date / Time Penicillins Allergy Unknown Verified 05/14/24 12:37 Review of Systems Review of Systems Narrative: see HPI Patient History Medical History Asthma exacerbation Fractures (~10/2010) Irregular menstrual cycle Human papilloma virus (~03/2018) Abnormal Pap smear of cervix (~03/2018) Anxiety (~03/2016) Asthma (~1999) GERD (gastroesophageal reflux disease) Dyspareunia Surgical History Anesthesia History of hysteroscopy (03/14/19) S/P laparoscopy (03/14/19) History of ankle surgery (~02/08/19) Family History Father Hyperlipidemia Mother Breast cancer Bone tumor Sister Vertigo Family history of thyroid problem Grandfather Dementia Lives in penitentiary Grandmother Lives in penitentiary Breast cancer Grandfather Mental health problem Paranoid schizophrenia History of suicide attempt Social History household members: friend(s) Smoking Status: Current every day smoker quit status: considering quitting second hand exposure: Yes (work at [employer]) alcohol intake: never substance use type: marijuana Smoking Status: Current every day smoker tobacco type: vaping alcohol intake frequency: holidays/special occasions only Substance Use Type: marijuana Exam Narrative Exam Narrative: GENERAL: Well-developed patient, in mild distress. HEAD: Atraumatic. Normocephalic. EYES: Pupils equal round and reactive. Extraocular motions intact. No scleral icterus. No injection or drainage. ENT: Nose without bleeding, purulent drainage. Throat without erythema, tonsillar hypertrophy or exudate. Airway patent. NECK: Trachea midline. Non tender CARDIOVASCULAR: Regular rate and rhythm without murmurs, gallops, or rubs. RESPIRATORY: Clear to auscultation. Breath sounds equal bilaterally. No wheezes, rales, or rhonchi. GASTROINTESTINAL: Abdomen soft, non-tender, nondistended. EXTREMITIES: No edema or joint tenderness. BACK: Nontender without deformity or crepitance. No flank tenderness. NEURO: AOx3. Motor functions grossly nonfocal SKIN: No rash or erythema of visible areas Initial Vital Signs Initial Vital Signs: Vital Signs Pulse Rate 94 H 08/04/24 10:14 Pulse Oximetry 97 08/04/24 10:14 Course Orders Ordered: ED Orders 08/04/24 12:09 US pelvic complete Stat Discontinued Medications Ketorolac Tromethamine (Ketorolac 30 Mg/Ml Vial) 15 mg IV NOW ONE Stop: 08/04/24 11:23 Last Admin: 08/04/24 11:38 Dose: 15 mg Documented By: EMILEI Morphine Sulfate (Morphine 4 Mg/Ml Inj) 4 mg IV NOW ONE Stop: 08/04/24 10:25 Last Admin: 08/04/24 10:40 Dose: 4 mg Documented By: EMILIE Ondansetron HCl (Ondansetron 4 Mg/2 Ml Inj) 4 mg IV NOW PRN PRN Reason: Nausea And Vomiting Ondansetron HCl (Ondansetron 4 Mg Odt) 4 mg SL NOW PRN PRN Reason: Nausea And Vomiting Ondansetron HCl (Ondansetron 4 Mg/2 Ml Inj) 4 mg IV NOW ONE Stop: 08/04/24 10:25 Last Admin: 08/04/24 10:39 Dose: 4 mg Documented By: EMILIE Vital Signs Vital signs: Vital Signs - 8 hr 08/04/24 13:21 08/04/24 13:23 08/04/24 13:24 Pulse Rate 75 85 85 Respiratory Rate 20 Blood Pressure 129/65 Pulse Oximetry 98 98 97 Oxygen Delivery Method 08/04/24 13:24 08/04/24 13:57 08/04/24 13:57 Pulse Rate 83 Respiratory Rate Blood Pressure 129/65 135/77 Pulse Oximetry 96 Oxygen Delivery Method Room Air 08/04/24 14:00 Pulse Rate 86 Respiratory Rate Blood Pressure Pulse Oximetry 98 Oxygen Delivery Method MDM - Abdominal Pain Lab Data Attestation: I reviewed the patient's lab results. 08/04/24 10:45 08/04/24 10:45 Labs: Lab Results 08/04/24 08/04/24 Range/Units 10:20 10:45 WBC 6.6 (4.5-11.0) X10^3/uL RBC 4.53 (4.0-5.2) X10^6/uL Hgb 14.2 (12.0-16.0) g/dL Hct 41.8 (36-46) % MCV 92.3 (80-100) fL MCH 31.3 (26-34) PG MCHC 33.9 (30-36) % RDW 13.1 (11.6-14.8) % Plt Count 360 (150-400) X10^3/uL Neut % (Auto) 54.6 (50-75) % Lymph % (Auto) 31.0 (25-40) % Person % (Auto) 6.0 (3-14) % Eos % (Auto) 7.5 H (2-4) % Baso % (Auto) 0.9 (0-2) % Neut # (Auto) 3600 (2761-6806) /uL Lymph # (Auto) 2100 (1290-9804) /uL Person # (Auto) 400 (0-900) /uL Eos # (Auto) 500 H (0-450) /uL Baso # (Auto) 100 (0-100) /uL Sodium 135 L (137-145) mmol/L Potassium 4.4 (3.4-5.1) mmol/L Chloride 105 (98-107) mmol/L Carbon Dioxide 24 (22-32) mmol/L BUN 10 (7-17) mg/dL Creatinine 0.67 (0.52-1.04) mg/dL Estimated GFR > 60 (>60) mL/min BUN/Creatinine Ratio 14.9 (6-22) Glucose 105 H (70-100) mg/dL Calcium 8.9 (8.4-10.2) mg/dL Total Bilirubin 1.1 (0.2-1.3) mg/dL AST 46 H (14-36) IU/L ALT 30 (<35) IU/L Alkaline Phosphatase 81 (38-126) U/L Total Protein 7.3 (6.3-8.2) g/dL Albumin 4.3 (3.5-5.0) g/dL Globulin 3.0 (1.7-4.1) g/dL Albumin/Globulin Ratio 1.4 (1.0-2.8) Lipase 32 (23-300) U/L Urine RBC 1-5/hpf D (0-5/HPF) Urine WBC 5-10/hpf H (0-5/HPF) Ur Squamous Epith Cells 1-5 /hpf (0-5/HPF) Urine Bacteria Few (2-10) H (None) Ur Culture Indicated? Specimen cultured Vol Urine Centrifuged 10ml (spun) Point of care testing: Point of Care Testing Test Results Negative Urine Dip Bedside Urine Glucose Negative Bedside Urine Bilirubin - Negative Bedside Urine Ketone - Negative Urine Specific [place] 1.015 Bedside Urine Occult Blood ++ Bedside Urine pH 6.0 Bedside Urine Protein +/- 15 Bedside Urine Urobilinogen - Negative Bedside Urine Nitrite - Negative Bedside Urine Leukocytes + [address] scan - abdomen/pelvis: Radiologist's Impression: [address] [id number] [address] Scan Report Signed Patient: Alexy Melo MR#: [id number] : 1995 Acct:[id number] Age/Sex: 29 / F Date of Service: 08/04/24 Loc: ED Accession Number: [id number] Procedure: CT abdomen pelvis wo con Ordering Provider: Marvin Joyner MD PROCEDURE: CT ABDOMEN PELVIS WO CON INDICATIONS: R flank pain TECHNIQUE: Axial sections were acquired from the lung bases to the pubic symphysis. Coronal and sagittal reformats were performed. For radiation dose reduction, the following was used: automated exposure control, adjustment of mA and/or kV according to patient size. COMPARISON: [facility], CT, CT ABDOMEN PELVIS W CON, 11/16/2023, 0:00. FINDINGS: Image quality: Diagnostic. Lower Chest: No significant findings. URINARY: Right Kidney: No stones or hydronephrosis. Right Ureter: No hydroureter. Left Kidney: Punctate non-obstructing calculus. Left Ureter: No hydroureter. Bladder: Normal wall thickness. No stones. ABDOMEN: Liver: No contour-deforming solid mass. Gallbladder: No radiopaque gallstones or wall thickening. Biliary ducts: No biliary dilation. Pancreas: No ductal dilation. Spleen: Size is within normal limits. Adrenal Glands: No adrenal nodules. Stomach and Bowel: Normal colonic caliber, without significant wall thickening. Appendix is normal. Peritoneum: No abnormal intraperitoneal fluid. No free air. Ventral Wall: No hernia. Abdominal Nodes: No enlarged retroperitoneal or mesenteric lymph nodes. Vessels: Aorta and inferior vena cava are normal in size. PELVIS: Pelvic Organs: There is a very minimal appearance fat stranding adjacent to the right ovary. Pelvic Nodes: Unremarkable. Miscellaneous: No inguinal hernias are seen. Bones: Unremarkable. IMPRESSION: No obstructing stones or hydronephrosis. Punctate non-obstructing left renal calculus. Very minimal appearance of fat stranding adjacent to the right ovary. Source of inflammation is not clearly identified. Ruptured cysts cannot be excluded. Pelvic ultrasound may be helpful for further evaluation. Dictated by: Ayana Rivas M.D. on 08/04/2024 at 11:55 Approved by: Ayana Rivas M.D. on 08/04/2024 at 11:57 Pelvis ultrasound: Radiologist's Impression: [address] [id number] Ultrasound Report Signed Patient: Alexy Melo MR#: [id number] : 1995 Acct:[id number] Age/Sex: 29 / F Date of Service: 08/04/24 Loc: ED Accession Number: [id number] Procedure: US pelvic complete Ordering Provider: Marvin Joyner MD PROCEDURE: US PELVIC COMPLETE INDICATIONS: RLQ R flank pain, ?cyst TECHNIQUE: Real-time scanning was performed of the pelvic organs, with image documentation. Additional endovaginal scanning was necessary due to incomplete visualization of the adnexal and endometrial structures by transabdominal scanning. COMPARISON: [facility], CT, CT ABDOMEN PELVIS WO CON, 08/04/2024, 11:34. FINDINGS: Uterus: Uterus is anteverted and normal in size at 8.0 x 3.3 x 5.2 cm. The myometrium is homogeneous. The endometrium measures 6 mm combined thickness. Ovaries: The right ovary measures 2.2 x 2.9 x 2.0 cm, with a calculated ovarian volume of 6.9 cc. The left ovary measures 1.8 x 2.2 x 1.8 cm, with a calculated ovarian volume of 3.8 cc. The ovaries have a normal sonographic appearance. Less than 12 follicles can be seen in each ovary. No adnexal masses are seen. 1.4 x 1.3 x 1.3 cm simple cyst in the right ovary. Other: No pathologic free abdominal or pelvic fluid. IMPRESSION: No sonographic abnormality of the uterus or ovaries. We strive to produce accurate, complete, and clear reports of imaging services. To assist us in improving patient care, this report was composed using standard report templates and voice recognition software. Therefore, it may contain abnormal punctuation, insertions and/or omissions. Occasional wrong-word or sound-alike substitutions may occur. Though we review the report and make efforts to correct it, we do recommend that the report be read carefully in proper context to recognize any text inaccuracies. Dictated by: Olegario Yousif M.D. on 08/04/2024 at 13:04 Approved by: Olegario Yousif M.D. on 08/04/2024 at 13:07 [facility] Narrative Medical decision making narrative: 29-year-old female with history of kidney stones, right-sided abdominal pain, also some right lower quadrant abdominal pain, suspicious for right ureteral stone. However she also had some bloody stool. No prior diverticulitis or colitis. We discussed empiric treatment for kidney stone only, versus imaging to look for colitis/diverticulitis or other pathology, she prefers imaging. HCG negative. CT abdomen and pelvis imaging requested. Urinalysis shows some red cells, some white cells, few bacteria, urine culture requested. White blood cell count normal, hemoglobin normal, CMP unremarkable, lipase normal CT abdomen and pelvis shows punctate small left renal stones, no ureteral stones left or right, right ovarian stranding noted, consider ultrasound. See radiology report. Ultrasound pelvis ordered. Ultrasound show no acute abnormality, see radiology report Unclear cause of her right flank and lower abdominal discomfort. Kidney stones mentioned but nonobstructive, non ureteral. Possible recent passage of right- sided kidney stone, though there was no inflammatory change or hydronephrosis changes suspicious for this process. Ultrasound adnexa did not confirm any abnormality suspected right adnexal region on CT, reassuring blood flow. Possible musculoskeletal cause of symptoms. Consider continue use of Motrin, consider muscle relaxant Robaxin/methocarbamol. Patient willing to try this regimen. Advised to recheck with your regular doctor if symptoms persist Thursday through the weekend, return precautions discussed prior. Improved, stable for discharge Discharge Plan Departure Patient Disposition: Home Clinical Impression: Right-sided back pain, Right lower quadrant abdominal pain Instructions: DI for Kidney Stones, DI for Abdominal Pain-Adult Activity Restrictions/Additional Instructions: Right-sided back flank and lower abdominal discomfort, history of kidney stones, feels somewhat similar. You did described some recent bright red blood with stooling, possible hemorrhoids. However there are other causes of this constellation of symptoms such as colitis or diverticulitis that could possibly cause his combination of symptoms, CT abdomen and pelvis obtained, showing no acute abdominal problems, showing small left-sided nonobstructing kidney stones, no ureteral stone right or left side, but possible inflammation near the right adnexa on CT scanning. Ultrasound of the pelvis was obtained. There was good blood flow to both ovaries, there was no obvious abnormality due to the right or the left ovary or adnexal region to explain your symptoms. Hemoglobin level normal. No GI bleeding during multiple hours of observation in the emergency department. Consider lower endoscopy as a follow up as an outpatient, though your symptoms might be hemorrhoidal by history. It is possible you might have musculoskeletal strain symptoms. It is possible you might have passed a tiny stone in the right that is not showing any inflammatory change or present on imaging. For now consider ibuprofen, consider trial of muscle relaxant, Robaxin/methocarbamol prescription sent to your pharmacy. Recheck symptoms with your regular doctor if not improved Thursday. Return earlier to this/nearest emergency department for any change worsening symptoms or any concerns prior Prescriptions: New methocarbamol 500 mg tablet 500 mg PO TID 7 Days Qty: 21 0RF No Action albuterol sulfate 1.25 mg/3 mL solution for nebulization 1.25 mg inhalation QID PRN norethindrone ac-eth estradiol [Lexi 11/14 (21)] 1-20 mg-mcg tablet 1 tab PO DAILY fluticasone propionate 110 mcg/actuation HFA aerosol inhaler 2 puff inhalation BID albuterol sulfate 90 mcg/actuation HFA aerosol inhaler 2 puff inhalation Q4-6H PRN (Reason: wheezing) Paxlovid 300 mg (150 mg x 2)-100 mg tablets,dose pack See Rx Instructions PO .COMPLEX Qty: 30 0RF Rx Instructions: take TWO 150 mg tablets of nirmatrelvir with ONE 100 mg tablet of ritonavir twice daily for 5 days PO benzonatate 200 mg capsule 200 mg PO TID PRN (Reason: cough) Qty: 30 0RF guaifenesin 1,200 mg tablet extended release 12hr 1,200 mg PO Q12H Qty: 30 0RF fluticasone propionate [Flonase Allergy Relief] 50 mcg/actuation spray,suspension 1 spray intranasal DAILY Qty: 16 2RF Rx Instructions: administer into each nostril bupropion HCl [Wellbutrin SR] 150 mg tablet sustained-release 12 hr 150 mg PO BID aripiprazole 2 mg tablet 2 mg PO DAILY Flovent Diskus 100 mcg/actuation blister with device 1 inh inhalation Q12H azithromycin 250 mg tablet See Rx Instructions PO .COMPLEX Qty: 6 0RF Rx Instructions: For 250 mg dose pack: take 500 mg today (day 1), then 250 mg for 4 days (days 2-5) PO tamsulosin 0.4 mg capsule 0.4 mg PO DAILY Qty: 7 0RF hydroxyzine HCl 25 mg tablet 25 mg PO QID PRN (Reason: anxiety) Qty: 20 0RF Referrals: Christiana Doe DO [Primary Care Provider] - Stand Alone Forms: Patient Portal/API, Work Release Note
[2024-08-04] MEDS: ONDANSETRON 4 MG/2 ML INJ IV (10:39)
[2024-08-04] MEDS: MORPHINE 4 MG/ML INJ IV (10:40)
[2024-08-04 11:00] LABS: Bacteria Urine Few (2-10); Culture Indicated Urine Specimen Cultured; RBC Urine 1-5/HPF (0-5/HPF); Squamous Epithelial Cell Urine 1-5 /HPF (0-5/HPF); Urine Volume 10mL (spun); WBC Urine 5-10/HPF (0-5/HPF)
--- NOTE | 2024-08-04 11:21 | DI.CT.S_ITS ---
PROCEDURE: CT ABDOMEN PELVIS WO CON INDICATIONS: R flank pain TECHNIQUE: Axial sections were acquired from the lung bases to the pubic symphysis. Coronal and sagittal reformats were performed. For radiation dose reduction, the following was used: automated exposure control, adjustment of mA and/or kV according to patient size. COMPARISON: [facility], CT, CT ABDOMEN PELVIS W CON, 11/16/2023, 0:00. FINDINGS: Image quality: Diagnostic. Lower Chest: No significant findings. URINARY: Right Kidney: No stones or hydronephrosis. Right Ureter: No hydroureter. Left Kidney: Punctate non-obstructing calculus. Left Ureter: No hydroureter. Bladder: Normal wall thickness. No stones. ABDOMEN: Liver: No contour-deforming solid mass. Gallbladder: No radiopaque gallstones or wall thickening. Biliary ducts: No biliary dilation. Pancreas: No ductal dilation. Spleen: Size is within normal limits. Adrenal Glands: No adrenal nodules. Stomach and Bowel: Normal colonic caliber, without significant wall thickening. Appendix is normal. Peritoneum: No abnormal intraperitoneal fluid. No free air. Ventral Wall: No hernia. Abdominal Nodes: No enlarged retroperitoneal or mesenteric lymph nodes. Vessels: Aorta and inferior vena cava are normal in size. PELVIS: Pelvic Organs: There is a very minimal appearance fat stranding adjacent to the right ovary. Pelvic Nodes: Unremarkable. Miscellaneous: No inguinal hernias are seen. Bones: Unremarkable. IMPRESSION: No obstructing stones or hydronephrosis. Punctate non-obstructing left renal calculus. Very minimal appearance of fat stranding adjacent to the right ovary. Source of inflammation is not clearly identified. Ruptured cysts cannot be excluded. Pelvic ultrasound may be helpful for further evaluation. Dictated by: Ayana Rivas M.D. on 08/04/2024 at 11:55 Approved by: Ayana Rivas M.D. on 08/04/2024 at 11:57
[2024-08-04 11:22] LABS: Add Manual Diff / Slide Review NO; Basophils Absolute Auto 100 /uL (0-100); Basophils Percent Auto 0.9 % (0-2); Eosinophils Absolute Auto 500 /uL (0-450); Eosinophils Percent Auto 7.5 % (2-4); Hematocrit 41.8 % (36-46); Hemoglobin 14.2 g/dL (12.0-16.0); Lymphocytes Absolute Auto 2100 /uL (1100-4500); Mean Corpuscular HGB Conc 33.9 % (30-36); Mean Corpuscular Hemoglobin 31.3 PG (26-34); Mean Corpuscular Volume 92.3 fL (80-100); Monocytes Absolute Auto 400 /uL (0-900); Neutrophils Absolute Auto 3600 /uL (1500-7000); Neutrophils Percent Auto 54.6 % (50-75); Platelet Count 360 X10^3/uL (150-400); Red Blood Cell Count 4.53 X10^6/uL (4.0-5.2); Red Cell Distribution Width 13.1 % (11.6-14.8); White Blood Cell Count 6.6 X10^3/uL (4.5-11.0)
[2024-08-04 11:29] LABS: Alanine Aminotransferase 30 IU/L (<35); Albumin 4.3 g/dL (3.5-5.0); Albumin Globulin Ratio 1.4 (1.0-2.8); Alkaline Phosphatase 81 U/L (38-126); Aspartate Aminotransferase 46 IU/L (14-36); BUN Creatinine Ratio 14.9 (6-22); Bilirubin Total 1.1 mg/dL (0.2-1.3); Blood Urea Nitrogen 10 mg/dL (7-17); Calcium 8.9 mg/dL (8.4-10.2); Carbon Dioxide 24 mmol/L (22-32); Chloride 105 mmol/L (98-107); Estimated Glomerular Filt Rate > 60 mL/min (>60); Glucose 105 mg/dL (70-100); HEMOLYSIS 33 (0-50); Lipase 32 U/L (23-300); Potassium 4.4 mmol/L (3.4-5.1); Sodium 135 mmol/L (137-145); Total Protein 7.3 g/dL (6.3-8.2)
[2024-08-04] MEDS: KETOROLAC 30 MG/ML VIAL 15 MG IV (11:38)
--- NOTE | 2024-08-04 12:09 | DI.US.S_ITS ---
PROCEDURE: US PELVIC COMPLETE INDICATIONS: RLQ R flank pain, ?cyst TECHNIQUE: Real-time scanning was performed of the pelvic organs, with image documentation. Additional endovaginal scanning was necessary due to incomplete visualization of the adnexal and endometrial structures by transabdominal scanning. COMPARISON: [facility], CT, CT ABDOMEN PELVIS WO CON, 08/04/2024, 11:34. FINDINGS: Uterus: Uterus is anteverted and normal in size at 8.0 x 3.3 x 5.2 cm. The myometrium is homogeneous. The endometrium measures 6 mm combined thickness. Ovaries: The right ovary measures 2.2 x 2.9 x 2.0 cm, with a calculated ovarian volume of 6.9 cc. The left ovary measures 1.8 x 2.2 x 1.8 cm, with a calculated ovarian volume of 3.8 cc. The ovaries have a normal sonographic appearance. Less than 12 follicles can be seen in each ovary. No adnexal masses are seen. 1.4 x 1.3 x 1.3 cm simple cyst in the right ovary. Other: No pathologic free abdominal or pelvic fluid. IMPRESSION: No sonographic abnormality of the uterus or ovaries. We strive to produce accurate, complete, and clear reports of imaging services. To assist us in improving patient care, this report was composed using standard report templates and voice recognition software. Therefore, it may contain abnormal punctuation, insertions and/or omissions. Occasional wrong-word or sound-alike substitutions may occur. Though we review the report and make efforts to correct it, we do recommend that the report be read carefully in proper context to recognize any text inaccuracies. Dictated by: Olegario Yousif M.D. on 08/04/2024 at 13:04 Approved by: Olegario Yousif M.D. on 08/04/2024 at 13:07
== END 2024-08-04 14:12 | disposition home or self-care (01) ==
PROVIDERS: Emergency Provider Emergency Medicine; PCP Family Medicine
DX: R10.31 Right lower quadrant pain (principal); M54.9 Dorsalgia, unspecified; Z87.442 Personal history of urinary calculi
CPT/HCPCS: 74176; 76830; 76856; 80053; 81003; 81015; 81025; 83690; 85025; 87077; 87086; 87186; 93975; 96374; 96375; 99283; 99284; J1885; J2270; J2405